=== PATIENT | female | born 1960 | race Caucasian/White ===

== ENCOUNTER → 2016-09-04 | Outpatient (CLI) | payer OTHER ==
[~2016-09-04] MED LIST: ACET325T96 PO; ADVIN25/60 INH; ALBUAER INH; DXM/4 PO; LEVO25TA PO; LEVO50TA PO; ONDA8TAB6 PO; OPTIRAY 320 IV PRN; OXYC-57 PO; PROC1TAB5 PO; SIMV5TAB2 PO
--- NOTE | 2016-09-04 13:16 | DIAGNOSTIC IMAGING REPORT ---
CT ABD/PELVIS IV AND ORAL CONT CLINICAL HISTORY: LUNG CANCER COMPARISON STUDY: None. TECHNIQUE: Following the IV administration of 92 mL of Optiray-320, CT scan of the abdomen and pelvis was performed from the lung bases to the proximal femurs. Images are reviewed in the axial, sagittal, and coronal planes. IV contrast was administered without complication. CT DOSE: FINDINGS: Lower chest: There are right middle lobe atelectatic changes. There is pulmonary emphysema. There is a nodular opacity within the lingula, also likely atelectatic. Liver: There is 8 mm hypodensity within the lateral segment left lobe. Gallbladder: Unremarkable. Spleen: Not visualized and presumed surgically absent Pancreas: Unremarkable. Adrenal glands: There is an indeterminate 17 mm left adrenal gland nodule Kidneys: There is symmetric renal cortical enhancement. The kidneys are normal in size without hydronephrosis. Bowel: There are no transition zones indicate bowel obstruction. No acute inflammatory changes are visualized. Peritoneum: There is no free air. There is no ascites. There are postsurgical changes involving the left anterior abdominal wall with rectus thickening. There is infiltration of the subjacent peritoneal fat. There is a linear opacity within the peritoneum, possibly representing a prior drainage catheter tract. There is mild thickening of the soft tissues adjacent to the splenic flexure, likely postsurgical Vasculature: The abdominal aorta is normal in course and caliber. Adenopathy: None. Pelvic viscera: The bladder, and pelvic viscera are unremarkable. Skeletal structures: No destructive osseous lesions are seen. IMPRESSION: 1. Postsurgical changes of a splenectomy. There are postsurgical changes within the left anterior abdominal wall, left rectus musculature, and subjacent omentum/peritoneal fat 2. Indeterminate 17 mm left adrenal nodule 3. Indeterminate 8 mm hypodensity within the left hepatic lobe Electronically signed by: Bennett Lainez M.D. 09/04/2016 1:14 PM Dictated Date/Time: 09/04/2016 1:04 PM
--- NOTE | 2016-09-04 13:34 | DIAGNOSTIC IMAGING REPORT ---
CT SCAN OF THE CHEST WITH IV CONTRAST CLINICAL HISTORY: Lung cancer. COMPARISON STUDY: Chest CT dated 06/02/2009. PET/CT dated 06/30/2016. TECHNIQUE: Following the IV administration of 92 cc of Optiray 320, CT scan of the thorax was performed from the thoracic inlet to the upper abdomen. Images are reviewed in the axial, sagittal, and coronal planes. IV contrast was administered without complication. CT DOSE: 1573.93 mGy.cm FINDINGS: Thyroid: Imaged portions of the thyroid gland are normal in size and attenuation. Thoracic aorta: There is atherosclerotic calcification of the thoracic aorta, which is normal in caliber and demonstrates standard 3-vessel arch anatomy. No dissection is seen. A right subclavian central venous infusion port is in place. Pulmonary vasculature: The pulmonary trunk is normal in caliber. There are no filling defects identified in the central pulmonary vessels to indicate pulmonary embolus. Note that this examination was not protocoled for evaluation of the pulmonary arteries. Heart: The heart is normal in size and configuration, and without pericardial effusion. Lungs and pleural spaces: Emphysema is identified. There is no airspace consolidation typical for pneumonia or pleural effusion. A left perihilar mass lesion invading into the mediastinum and extending into the left upper lobe along the major fissure measures approximately 7.5 x 4 cm. This is similar in size to 06/30/2016 examination, and encases the left upper lobe pulmonary artery and the left upper lobe bronchus. Mediastinum: Mediastinal lymphadenopathy is similar appearance to 06/30/2016. A high left prevascular node on image #45 measures 2.5 x 2.4 cm (previously measuring 2.3 x 2.1 cm). A subcarinal node on image #110 measures 2.3 x 2.9 cm (previously measuring 2.3 x 3.5 cm). Scarring seen in the right middle lobe. There is bibasilar atelectasis. The trachea is clear. Lower neck: A left supraclavicular lymph node on image #15 measures 2.2 x 1.3 cm (producing measured 2.3 cm). Rosa: There is no right hilar adenopathy. The left hilum contains a large mass as above. Axillae: There is no axillary lymphadenopathy. Upper abdomen: Postoperative change is seen in the left upper quadrant abdominal wall. A 2.0 cm left adrenal nodule and a 1.4 cm right adrenal nodule have been present dating back to 2008. These are low suspicion despite low level FDG activity on 06/30/2016 PET examination. Omental nodularity is again seen in the left upper quadrant. Skeletal structures: The skeletal structures are osteopenic. No lytic or blastic bony lesions are seen. IMPRESSION: 1. Overall no significant change in the appearance of a left perihilar lung mass with mediastinal and left supraclavicular lymphadenopathy as detailed above when compared to the 06/30/2016 PET examination. 2. No new metastatic lesions are seen. 3. Emphysema. There is no airspace consolidation or pleural effusion. 4. Omental nodularity is again seen in the left upper quadrant the abdomen. See report of abdominal CT performed concurrently for detailed intra-abdominal findings. 5. Additional findings as above. Electronically signed by: Foreign Xavier M.D. 09/04/2016 1:33 PM Dictated Date/Time: 09/04/2016 1:14 PM
--- NOTE | 2016-09-04 13:54 | DIAGNOSTIC IMAGING REPORT ---
CT NECK WITH INTRAVENOUS CONTRAST HISTORY: Assess for metastatic disease. LUNG CANCER TECHNIQUE: Multiaxial CT images of the neck were performed following the use of intravenous contrast. COMPARISON STUDY: PET CT 06/30/2016. FINDINGS: The visualized brain parenchyma and orbits are unremarkable. There is a fluid level resulting in near-complete opacification in the left maxillary sinus. Prevertebral soft tissues and the epiglottis are normal in thickness. Mild asymmetry of the left vocal cord in comparison to the right. This could represent partial paralysis. The thyroid gland enhances normally. The major cervical vessels are patent. The patient's left upper lobe mass is only partially visualized on this study. Left-sided superior mediastinal lymphadenopathy is not significantly changed. This measures up to 2.1 cm. There is also left supraclavicular/neck base lymphadenopathy and upper left cervical lymphadenopathy. These lymph nodes have slightly decreased in size. Dominant 1.3 x 0.8 cm upper left cervical lymph node previously measured 1.6 x 1.1 cm. The parotid and submandibular glands are symmetric. There is no right-sided cervical lymphadenopathy. Partial opacification the right external auditory canal with a focal area of hyperdense material which measures 8 mm. This favors a focus of cerumen. This is best seen on image 26. No suspicious lytic or blastic osseous lesions. IMPRESSION: 1. Slight decrease in size in the left cervical/supraclavicular lymphadenopathy. 2. Left superior mediastinal lymphadenopathy is similar to the prior PET/CT. 3. The patient's left upper lobe mass is only partially visualized on this study. Electronically signed by: Alok Bañuelos M.D. 09/04/2016 1:52 PM Dictated Date/Time: 09/04/2016 1:41 PM
== END | disposition home or self-care (01) ==
LOC: C.CTS 10:29
PROVIDERS: ATTEND Nurse Practitioner
DX: C34.12 Malignant neoplasm of upper lobe, left bronchus or lung (principal); J43.9 Emphysema, unspecified; R59.0 Localized enlarged lymph nodes; E27.9 Disorder of adrenal gland, unspecified; R93.2 Abnormal findings on diagnostic imaging of liver and biliary tract; Z90.81 Acquired absence of spleen

== ENCOUNTER → 2016-10-27 | Outpatient (CLI) | payer OTHER ==
[~2016-10-27] MED LIST changes: +GADAVIST IV PRN; -OPTIRAY 320 IV PRN
--- NOTE | 2016-10-27 12:34 | DIAGNOSTIC IMAGING REPORT ---
MRI OF THE BRAIN COMBO CLINICAL HISTORY: Blurry vision. Headache. History of lung cancer. COMPARISON STUDY: MRI of the brain from [facility] dated 09/19/16. TECHNIQUE: MRI of the brain was performed utilizing various T1 and T2-weighted sequences in the axial, sagittal, and coronal planes. Contrast-enhanced sequences were acquired following the administration of 7 cc of Gadavist. FINDINGS: Brain parenchyma: There is mild patchy subcortical and periventricular microangiopathic disease. There is no hemorrhage or mass effect. There is no restricted diffusion to suggest acute ischemia. Previous identified temporal and occipital metastatic lesions are no longer apparent. There are 2 residual dural based metastatic foci in the left frontal region seen on high-resolution axial images #106 and #101 of 128. These are consistent with a resolved from previous. Aguilar-white matter differentiation is preserved. No extra-axial fluid collection is seen. The cerebellar tonsils are normal in configuration. Ventricles, sulci, and cisterns: Normal in configuration. Pituitary and sella: Unremarkable. Intracranial vasculature: Normal flow voids are maintained at the skull base. Orbits: The bony orbits are grossly intact. Orbital contents are normal in appearance. Sinuses and mastoids: There is mucosal thickening and secretions filling the left maxillary antrum. Mild mucosal thickening is seen within the left ethmoid sinuses. The remaining paranasal sinuses and the mastoid air cells are clear. Calvarium: Unremarkable. Cervical cord: Partially visualized cervical spinal cord is normal in morphology and signal intensity. IMPRESSION: 1. No progressive metastatic disease is identified. The previously identified temporal and occipital metastatic lesions seen on 09/19/2016 have resolved. 2. There are 2 residual dural based metastases in the left frontal region. These have almost completely resolved from previous. 3. There is no hemorrhage or evidence of acute ischemia. 4. Left maxillary sinus disease as above. Electronically signed by: Foreign Xavier M.D. 10/27/2016 12:32 PM Dictated Date/Time: 10/27/2016 12:19 PM
== END | disposition home or self-care (01) ==
LOC: C.MRI 10:53
PROVIDERS: ATTEND Radiology Radiation Oncology
DX: C34.12 Malignant neoplasm of upper lobe, left bronchus or lung (principal); C79.31 Secondary malignant neoplasm of brain

== ENCOUNTER → 2016-12-11 | Outpatient (CLI) | payer OTHER ==
[~2016-12-11] MED LIST changes: -ACET325T96 PO; -GADAVIST IV PRN; -OXYC-57 PO; +[UNRECOGNIZED DRUG - REMARK]
[2016-12-11 08:22] VITALS: BP 121/86; PULSE 115; TEMP 36.9; O2SAT 95
--- NOTE | 2016-12-11 09:39 | Radiation Oncology Follow-Up ---
Radiation Oncology Follow-Up Date of Visit Dec 11, 2016. (Rama Katz PA-C) Reason For Visit One-month follow-up (Rama Katz PA-C) Radiation Completion Date Stereotactic to brain 11/12/16 (Rama Katz PA-C) Diagnosis (1) Carcinoma, lung Status: Acute Onset Date: 03/26/2016 Location: brain metastasis Histology Subtype: poorly differentiated carcinoma Stage: IV Permanent Comment: Admitted due to abdominal pain and finding of a ruptured spleen. 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 She received 3000 cGy in 5 fractions. Last Edited By: Rama Katz on Nov 24, 2016 16:04 (Rama Katz PA-C) History of Present Illness Ms. Vaughn is a 55-year-old female who presented in March 2016 with abdominal pain which revealed a splenic rupture and pulmonary masses. The patient underwent a laparotomy and splenectomy on 03/26/2016 which confirmed poorly differentiated carcinoma favoring a lung primary. The patient a PET/CT scan which revealed a 7.3 cm intensely FDG avid left upper lobe mass extending to the left hilum and AP window lymph nodes consistent with a primary bronchogenic malignancy. Additionally, there was metastatic disease identified in the left neck, mediastinum, left hilum, left upper chest and omentum. The patient subsequently received 6 cycles of carboplatin and Taxol chemotherapy with Avastin for the last 2 cycles. She did have a restaging PET CT scan on which revealed findings consistent with a mixed treatment response and slight overall improvement. The patient was subsequently started on Opdivo. She did have restaging scans including a CT of the chest/abdomen/pelvis on 09/04 which did reveal no progression of disease. The patient did have a restaging MRI of the brain on 09/19/2016 which did show 2 enhancing lesions in the left temporal lobe representing metastatic disease. The larger lesion measured 7 mm and was surrounded with vasogenic edema and a smaller focus of enhancement measured 2 mm in the greatest dimension. We are now being asked to evaluate the patient for consideration of radiation therapy to the brain for metastatic disease. Currently, the patient states that she does have some headaches and potentially some blurry vision in her left eye as well. Otherwise, the patient is asymptomatic. She has had no evidence of seizures. The MRI of the brain was reviewed and she was found to be a candidate for stereotactic radiation therapy. Treatment was completed 11/12/2016. She received 3000 cGy in 5 fractions. (Rama Katz PA-C) Interim History She's been doing well over this past month. She feels her vision has improved. She's had no nausea or vomiting. She denies headaches. She does have a different feeling in the left frontal area. She has noted some hair loss in the left frontal area as well as the right occipital area. She had no skin irritation. There is no problems with her hearing or irritation of the ears. She is followed closely by Dr. Melendrez. She is undergoing chemotherapy with Opdivo. She is receiving treatment every 2 weeks. She is tolerating this well. (Rama Katz PA-C) Allergies Coded Allergies: Ibuprofen (Verified Allergy, Severe, Swelling;hives, 10/21/16) patient states she had to be hospitalized the last time she took ibuprofen Home Medications Scheduled Dexamethasone (Decadron), 4 TAB PO BID Levothyroxine Sodium (Synthroid), 1 TAB PO DAILY Scheduled PRN Albuterol Sulfate (Proventil Hfa), 1 PUFF INH QID PRN for Shortness of Breath Ondansetron Hcl (Zofran), 8 MG PO Q8 PRN for Nausea Prochlorperazine Maleate (Compazine), 1 TAB PO Q6 PRN for Nausea or Vomiting Review of Systems Gastrointestinal: Symptoms: WNL GI Comments: Zofran & Compazine PRN Oral: Symptoms: No Problems Respiratory: Symptoms: WNL Respiratory Comments: INFANTE Other Respiratory: Down to smoking 0.5 pack/day from 2 packs per day Urinary: Symptoms: WNL Skin: Symptoms: No Problems Other Skin Symptoms: Reports hair loss (Rama Katz PA-C) Physical Exam Vital Signs Date Time Temp Pulse Resp B/P Pulse Ox O2 Delivery O2 Flow Rate FiO2 12/11/16 08:22 36.9 115 18 121/86 95 Fatigue: None General Appearance: no apparent distress Eyes: normal inspection, PERRL, EOMI ENT: normal ENT inspection, hearing grossly normal, pharynx normal Neck: supple, no adenopathy, thyroid normal Respiratory/Chest: lungs clear, no respiratory distress, no accessory muscle use Cardiovascular: regular rate, rhythm, no gallop, no murmur Abdomen: non tender Extremities: no pedal edema Neurologic/Psychiatric: show host or hostess II-XII nml as tested, no motor/sensory deficits, alert, normal mood/affect Skin: warm/dry (Rama Katz PA-C) Laboratory Studies Test 09/18/16 08:42 10/02/16 11:14 10/16/16 11:10 10/30/16 09:23 Free Thyroxine 1.28 ng/dl (0.80-1.60) Free Triiodothyronine 2.44 pg/ml (2.30-4.20) Polychromasia 1+ 1+ Basophilic Stippling 1+ Hypochromasia PRESENT Anisocytosis PRESENT Macrocytosis PRESENT Target Cells 1+ [place] Bodies 1+ Thyroid Stimulating Hormone (TSH) 0.156 uIu/ml (0.300-4.500) Test 11/13/16 11:00 11/27/16 09:39 12/11/16 08:10 Immature Granulocyte % (Auto) 2.0 % 1.2 % White Blood Count 13.19 K/uL (4.8-10.8) 7.52 K/uL (4.8-10.8) 12.17 K/uL (4.8-10.8) Red Blood Count 4.23 M/uL (4.2-5.4) 4.29 M/uL (4.2-5.4) 4.67 M/uL (4.2-5.4) Hemoglobin 12.0 g/dL (12.0-16.0) 12.0 g/dL (12.0-16.0) 13.2 g/dL (12.0-16.0) Hematocrit 36.1 % (37-47) 36.5 % (37-47) 40.2 % (37-47) Mean Corpuscular Volume 85.3 fL (80-100) 85.1 fL (80-100) 86.1 fL (80-100) Mean Corpuscular Hemoglobin 28.4 pg (25-34) 28.0 pg (25-34) 28.3 pg (25-34) Mean Corpuscular Hemoglobin Concent 33.2 g/dl (32-36) 32.9 g/dl (32-36) 32.8 g/dl (32-36) Platelet Count 287 K/uL (130-400) 287 K/uL (130-400) 617 K/uL (130-400) Mean Platelet Volume 9.0 fL (7.4-10.4) 9.0 fL (7.4-10.4) 8.9 fL (7.4-10.4) Neutrophils (%) (Auto) 88.7 % 68.6 % Lymphocytes (%) (Auto) 4.7 % 17.2 % Monocytes (%) (Auto) 3.9 % 10.1 % Eosinophils (%) (Auto) 0.6 % 2.1 % Basophils (%) (Auto) 0.1 % 0.8 % Neutrophils # (Auto) 11.69 K/uL (1.4-6.5) 8.36 K/uL (1.4-6.5) Lymphocytes # (Auto) 0.62 K/uL (1.2-3.4) 2.09 K/uL (1.2-3.4) Monocytes # (Auto) 0.52 K/uL (0.11-0.59) 1.23 K/uL (0.11-0.59) Eosinophils # (Auto) 0.08 K/uL (0-0.5) 0.25 K/uL (0-0.5) Basophils # (Auto) 0.01 K/uL (0-0.2) 0.10 K/uL (0-0.2) Immature Granulocyte # (Auto) 0.27 K/uL (0.00-0.02) 0.14 K/uL (0.00-0.02) Nucleated RBC Absolute Count (auto) 0.08 K/uL (0-0) 0.02 K/uL (0-0) Nucleated Red Blood Cells % 0.6 % 0.2 % Anisocytosis PRESENT Target Cells 1+ Acanthocytes (Spur Cells) 1+ 1+ Magnesium Level 2.2 mg/dl (1.8-2.4) RDW Standard Deviation 75.7 fL (36.4-46.3) 72.6 fL (36.4-46.3) RDW Coefficient of Variation 24.8 % (11.5-14.5) 23.1 % (11.5-14.5) Neutrophils % (Manual) 80.5 % Lymphocytes % (Manual) 16.8 % Monocytes % (Manual) 2.7 % Neutrophils # (Manual) 6.05 K/uL (1.4-6.5) Total Absolute Neutrophils 6.05 K/uL (1.4-6.5) Lymphocytes # (Manual) 1.26 K/uL (1.2-3.4) Total Absolute Lymphocytes 1.26 K/uL (1.2-3.4) Monocytes # (Manual) 0.20 K/uL (0.11-0.59) Toxic Granulation 1+ Large Platelets 1+ Sodium Level 144 mmol/L (136-145) 140 mmol/L (136-145) Potassium Level 4.6 mmol/L (3.5-5.1) 4.7 mmol/L (3.5-5.1) Chloride Level 109 mmol/L (98-107) 105 mmol/L (98-107) Carbon Dioxide Level 29 mmol/L (21-32) 30 mmol/L (21-32) Anion Gap 6.0 mmol/L (3-11) 5.0 mmol/L (3-11) Blood Urea Nitrogen 18 mg/dl (7-18) 13 mg/dl (7-18) Creatinine 1.00 mg/dl (0.60-1.20) 1.20 mg/dl (0.60-1.20) Estimated GFR () 72.4 58.1 Estimated GFR (Non- 62.5 50.1 BUN/Creatinine Ratio 17.9 (10-20) 10.8 (10-20) Random Glucose 98 mg/dl (70-99) 112 mg/dl (70-99) Calcium Level 9.3 mg/dl (8.5-10.1) 10.1 mg/dl (8.5-10.1) Total Bilirubin 0.3 mg/dl (0.2-1) 0.3 mg/dl (0.2-1) Aspartate Amino Transferase (AST) 12 U/L (15-37) 10 U/L (15-37) Alanine Aminotransferase (ALT) 28 U/L (12-78) 15 U/L (12-78) Alkaline Phosphatase 104 U/L (45-117) 122 U/L (45-117) Lactate Dehydrogenase 240 U/L (84-246) Total Protein 7.3 gm/dl (6.4-8.2) 7.6 gm/dl (6.4-8.2) Albumin 3.2 gm/dl (3.4-5.0) 3.3 gm/dl (3.4-5.0) Globulin 4.1 gm/dl (2.5-4.0) 4.3 gm/dl (2.5-4.0) Albumin/Globulin Ratio 0.8 (0.9-2) 0.8 (0.9-2) Thyroid Stimulating Hormone (TSH) 1.520 uIu/ml (0.300-4.500) Giant Platelets 1+ Hypochromasia PRESENT (Rama Katz PA-C) Assessment & Plan Plan: Patient is also seen and examined by Dr. Giraldo. Continue regular follow- up and treatment with medical oncology. She is getting treatment every 2 weeks. We asked her to return to our office in 3 months. We will schedule her for an MRI prior to that visit. This will be a thin slice evaluation which will give better views on treatment response. She may call our office if she has any questions or concerns in the interim. (Rama Katz PA-C) I agree with note created by Rama Katz PA-C. I reviewed the patient's chart and information with her. I have examined and evaluated the patient. I reviewed relevant clinical information and answered the patient's and/or family' s questions. (Veeral. Giraldo MD) Total Time In Follow-Up I spent 20 minutes speaking to the patient performing examination. I spent 15 minutes reviewing information and completing this note. (Rama Katz PA-C) I spent 15 minutes examining and counseling the patient. (Veeral. Giraldo MD) Copy To Tammy Flores M.D.; Carmine Melendrez D.O. Problem Qualifiers (1) Carcinoma, lung: Laterality: left Qualified Codes: C34.92 - Malignant neoplasm of unspecified part of left bronchus or lung
== END | disposition home or self-care (01) ==
LOC: C.ONC 08:05
PROVIDERS: ATTEND Physician Assistant Medical
DX: Z08 Encounter for follow-up examination after completed treatment for malignant neoplasm (principal); Z92.3 Personal history of irradiation; Z85.118 Personal history of other malignant neoplasm of bronchus and lung

== ENCOUNTER → 2017-01-22 | Outpatient (CLI) | payer OTHER ==
[~2017-01-22] MED LIST changes: -LEVO25TA PO
--- NOTE | 2017-01-22 13:05 | DIAGNOSTIC IMAGING REPORT ---
TWO VIEW CHEST CLINICAL HISTORY: Cough. FINDINGS: PA and lateral chest radiographs are compared to study dated 06/02/2009 and correlated with chest CT dated 09/04/2016. The examination is degraded by large body habitus. A right subclavian central venous infusion port is again noted. The cardiomediastinal silhouette is unremarkable. Emphysema and chronic interstitial thickening are similar to previous. There is a small right pleural effusion with right basilar consolidation. A trace pleural effusion is suggested on the left. The left upper lobe/perihilar density seen by CT on 09/04/2016 is not well-visualized and is best on the lateral projection. The right upper lung appears clear. There is no pneumothorax. The skeletal structures are osteopenic. The bony thorax appears intact. IMPRESSION: 1. There is airspace consolidation at the right lung base with small right pleural effusion. Correlate clinically for evidence of an infectious/inflammatory pneumonitis. Radiographic follow-up to resolution is recommended. 2. A left upper lobe/perihilar lesion seen by CT on 09/04/2016 is not well-visualized and was only partially identified on the lateral projection. Electronically signed by: Foreign Xavier M.D. 01/22/2017 1:04 PM Dictated Date/Time: 01/22/2017 1:02 PM
== END | disposition home or self-care (01) ==
LOC: C.RAD 12:44
PROVIDERS: ATTEND Internal Medicine Hematology & Oncology
DX: C34.12 Malignant neoplasm of upper lobe, left bronchus or lung (principal); R91.8 Other nonspecific abnormal finding of lung field

== ENCOUNTER → 2017-03-09 | Outpatient (CLI) | payer OTHER ==
[~2017-03-09] MED LIST changes: +GADAVIST IV PRN; -[UNRECOGNIZED DRUG - REMARK]
--- NOTE | 2017-03-09 10:42 | DIAGNOSTIC IMAGING REPORT ---
BRAIN COMBO CLINICAL HISTORY: 56 years-old Female presenting with history of lung cancer, metastatic disease, previously with headache and blurry vision. TECHNIQUE: Multisequence, multiplanar MR imaging of the brain was performed before and after administration of intravenous contrast. IV contrast: 7 mL of Gadavist. COMPARISON: 10/27/2016. FINDINGS: Ventricles and sulci normal in size. Previously noted dural based lesions in the left frontal region are minimally evident (series 11 images 101 and 104). No new lesion. Scattered T2 hyperintense foci throughout the subcortical white matter likely chronic small vessel ischemic change. No mass effect or midline shift. No hemorrhage or acute territorial infarct. No extra-axial fluid collection. Vessels patent. Complete opacification of the left maxillary sinus, which demonstrates restricted diffusion unchanged from prior exam. Rim enhancement noted on postcontrast imaging. IMPRESSION: 1. Interval decrease in prominence of previously noted dural based lesions. No evidence of progression or new sites of metastatic disease. 2. No acute intracranial pathology. 3. Left maxillary sinusitis, chronic. Electronically signed by: Osman Liu M.D. 03/09/2017 10:41 AM Dictated Date/Time: 03/09/2017 10:30 AM
== END | disposition home or self-care (01) ==
LOC: C.MRI 09:25
PROVIDERS: ATTEND Physician Assistant Medical
DX: C34.12 Malignant neoplasm of upper lobe, left bronchus or lung (principal); C79.31 Secondary malignant neoplasm of brain

== ENCOUNTER → 2017-03-12 | Outpatient (CLI) | payer OTHER ==
[~2017-03-12] MED LIST changes: -GADAVIST IV PRN
[2017-03-12 13:15] VITALS: BP 117/78; PULSE 100; TEMP 37.4; O2SAT 97
--- NOTE | 2017-03-12 14:17 | Radiation Oncology Follow-Up ---
Radiation Oncology Follow-Up Date of Visit Mar 12, 2017. (Rama Katz PA-C) Reason For Visit One-month follow-up (Rama Katz PA-C) Radiation Completion Date Stereotactic brain radiation 11/12/16 (Rama Katz PA-C) Diagnosis (1) Carcinoma, lung Status: Acute Onset Date: 03/26/2016 Location: brain metastasis Histology Subtype: poorly differentiated carcinoma Stage: IV Permanent Comment: Admitted due to abdominal pain and finding of a ruptured spleen. 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 She received 3000 cGy in 5 fractions. Last Edited By: Rama Katz on Nov 24, 2016 16:04 (Rama Katz PA-C) History of Present Illness Ms. Celeste is a 56-year-old female who presented in March 2016 with abdominal pain which revealed a splenic rupture and pulmonary masses. The patient underwent a laparotomy and splenectomy on 03/26/2016 which confirmed poorly differentiated carcinoma favoring a lung primary. The patient a PET/CT scan which revealed a 7.3 cm intensely FDG avid left upper lobe mass extending to the left hilum and AP window lymph nodes consistent with a primary bronchogenic malignancy. Additionally, there was metastatic disease identified in the left neck, mediastinum, left hilum, left upper chest and omentum. The patient subsequently received 6 cycles of carboplatin and Taxol chemotherapy with Avastin for the last 2 cycles. She did have a restaging PET CT scan on which revealed findings consistent with a mixed treatment response and slight overall improvement. The patient was subsequently started on Opdivo. She did have restaging scans including a CT of the chest/abdomen/pelvis on 09/04 which did reveal no progression of disease. The patient did have a restaging MRI of the brain on 09/19/2016 which did show 2 enhancing lesions in the left temporal lobe representing metastatic disease. The larger lesion measured 7 mm and was surrounded with vasogenic edema and a smaller focus of enhancement measured 2 mm in the greatest dimension. We are now being asked to evaluate the patient for consideration of radiation therapy to the brain for metastatic disease. Currently, the patient states that she does have some headaches and potentially some blurry vision in her left eye as well. Otherwise, the patient is asymptomatic. She has had no evidence of seizures. The MRI of the brain was reviewed and she was found to be a candidate for stereotactic radiation therapy. Treatment was completed 11/12/2016. She received 3000 cGy in 5 fractions. (Rama Katz PA-C) Interim History Patient seen today in follow-up. She had a recheck MRI and is for results. She 's been followed closely by Dr. Melendrez. She is currently on a 1 month holiday from chemotherapy. She had been debilitated with poor appetite and weight loss. She is now steadily improving and doing better. She is seeing Dr. Melendrez 03/26/2017. He states that she'll be having recheck scanning and from this information decision will be made about further treatment. She does become short of breath easily. Pulse oximetry today was 97%. She does monitor this at home. This does not go below 94%. She is not on any steroid therapy. She denies any headaches. No change in vision. No problems with nausea or vomiting. (Rama Katz PA-C) Allergies Coded Allergies: Ibuprofen (Verified Allergy, Severe, Swelling;hives, 10/21/16) patient states she had to be hospitalized the last time she took ibuprofen Home Medications Scheduled Fluticasone Prop/Salmeterol (Advair Diskus 250/50 60 Dose), 1 PUFFS INH BID Levothyroxine Sodium (Synthroid), 1 TAB PO DAILY Simvastatin (Zocor), 5 MG PO QPM Scheduled PRN Albuterol Sulfate (Proventil Hfa), 1 PUFF INH QID PRN for Shortness of Breath Ondansetron Hcl (Zofran), 8 MG PO Q8 PRN for Nausea Prochlorperazine Maleate (Compazine), 1 TAB PO Q6 PRN for Nausea or Vomiting Review of Systems Gastrointestinal: Symptoms: Constipation GI Comments: Manageable at home;Has antiemetics at home; Oral: Symptoms: No Problems Respiratory: Symptoms: SOB With Exertion, Productive Cough Sputum Character: Clear sputum when cough is productive; Urinary: Symptoms: WNL Skin: Symptoms: No Problems (Rama Katz PA-C) Physical Exam Vital Signs Date Time Temp Pulse Resp B/P (MAP) Pulse Ox O2 Delivery O2 Flow Rate FiO2 03/12/17 13:15 37.4 100 20 117/78 97 Fatigue: None General Appearance: no apparent distress, + pertinent finding (1 small area in the left frontal area of alopecia that is resolving.) Eyes: normal inspection, PERRL, EOMI ENT: normal ENT inspection, hearing grossly normal Neck: no adenopathy, thyroid normal Respiratory/Chest: lungs clear, no respiratory distress, no accessory muscle use Cardiovascular: regular rate, rhythm, no gallop, no murmur Abdomen: non tender, soft, no organomegaly Extremities: no pedal edema Neurologic/Psychiatric: damper maker II-XII nml as tested, no motor/sensory deficits, alert, normal mood/affect Skin: warm/dry (Rama Katz PA-C) Laboratory Studies Test 12/11/16 08:10 12/25/16 09:42 01/08/17 09:29 01/22/17 10:01 Giant Platelets 1+ Hypochromasia PRESENT Large Platelets 1+ Anisocytosis PRESENT PRESENT Target Cells 1+ 1+ Acanthocytes (Spur Cells) 1+ [place] Bodies 1+ Thyroid Stimulating Hormone (TSH) 0.435 uIu/ml (0.300-4.500) Test 02/05/17 09:13 02/19/17 11:01 White Blood Count 11.91 K/uL (4.8-10.8) 11.70 K/uL (4.8-10.8) Red Blood Count 4.51 M/uL (4.2-5.4) 4.43 M/uL (4.2-5.4) Hemoglobin 12.2 g/dL (12.0-16.0) 11.9 g/dL (12.0-16.0) Hematocrit 36.4 % (37-47) 35.0 % (37-47) Mean Corpuscular Volume 80.7 fL (80-100) 79.0 fL (80-100) Mean Corpuscular Hemoglobin 27.1 pg (25-34) 26.9 pg (25-34) Mean Corpuscular Hemoglobin Concent 33.5 g/dl (32-36) 34.0 g/dl (32-36) Platelet Count 754 K/uL (130-400) 783 K/uL (130-400) Mean Platelet Volume 8.1 fL (7.4-10.4) 8.1 fL (7.4-10.4) Neutrophils (%) (Auto) 74.1 % 68.1 % Lymphocytes (%) (Auto) 13.4 % 16.5 % Monocytes (%) (Auto) 7.6 % 8.1 % Eosinophils (%) (Auto) 3.8 % 6.2 % Basophils (%) (Auto) 0.7 % 0.5 % Neutrophils # (Auto) 8.83 K/uL (1.4-6.5) 7.97 K/uL (1.4-6.5) Lymphocytes # (Auto) 1.60 K/uL (1.2-3.4) 1.93 K/uL (1.2-3.4) Monocytes # (Auto) 0.90 K/uL (0.11-0.59) 0.95 K/uL (0.11-0.59) Eosinophils # (Auto) 0.45 K/uL (0-0.5) 0.72 K/uL (0-0.5) Basophils # (Auto) 0.08 K/uL (0-0.2) 0.06 K/uL (0-0.2) RDW Standard Deviation 55.5 fL (36.4-46.3) 53.3 fL (36.4-46.3) RDW Coefficient of Variation 18.8 % (11.5-14.5) 18.5 % (11.5-14.5) Immature Granulocyte % (Auto) 0.4 % 0.6 % Immature Granulocyte # (Auto) 0.05 K/uL (0.00-0.02) 0.07 K/uL (0.00-0.02) Sodium Level 139 mmol/L (136-145) 139 mmol/L (136-145) Potassium Level 4.5 mmol/L (3.5-5.1) 4.6 mmol/L (3.5-5.1) Chloride Level 104 mmol/L (98-107) 104 mmol/L (98-107) Carbon Dioxide Level 29 mmol/L (21-32) 27 mmol/L (21-32) Anion Gap 6.0 mmol/L (3-11) 8.0 mmol/L (3-11) Blood Urea Nitrogen 13 mg/dl (7-18) 11 mg/dl (7-18) Creatinine 1.40 mg/dl (0.60-1.20) 1.30 mg/dl (0.60-1.20) Estimated GFR () 48.2 52.7 Estimated GFR (Non- 41.6 45.5 BUN/Creatinine Ratio 9.5 (10-20) 8.3 (10-20) Random Glucose 114 mg/dl (70-99) 105 mg/dl (70-99) Calcium Level 9.3 mg/dl (8.5-10.1) 10.0 mg/dl (8.5-10.1) Total Bilirubin 0.3 mg/dl (0.2-1) 0.3 mg/dl (0.2-1) Aspartate Amino Transferase (AST) 6 U/L (15-37) 6 U/L (15-37) Alanine Aminotransferase (ALT) 13 U/L (12-78) 13 U/L (12-78) Alkaline Phosphatase 110 U/L (45-117) 103 U/L (45-117) Total Protein 7.5 gm/dl (6.4-8.2) 7.7 gm/dl (6.4-8.2) Albumin 3.1 gm/dl (3.4-5.0) 2.9 gm/dl (3.4-5.0) Globulin 4.4 gm/dl (2.5-4.0) 4.8 gm/dl (2.5-4.0) Albumin/Globulin Ratio 0.7 (0.9-2) 0.6 (0.9-2) Thyroid Stimulating Hormone (TSH) 0.144 uIu/ml (0.300-4.500) (Rama Katz PA-C) Additional Studies Patient: DILLON CELESTE Address1: [address] [facility] Rec: [id number] Address2: Acct ID: [id number] [facility] Zip: [place] [address] Date: 1960 Sex: F Room/Bed: Ref Phy: Tammy Flores M.D. SC: C.MRI Att Phy: Rama Katz PA-C Report #: [id number] Romy Phy: Tammy Flores M.D. Test: [facility] Admit Phy: Personal Service Representative: ROMI Interpreting Phy: Osman Liu MD Diagnosis: LUNG CA W/BRAIN METS Ordering Phy: Rama Katz PA-C Service Date: 03/09/17 Admit Date: 03/09/17 MNE: [id number] CONF: DICTATED BY: Osman Liu MD]] CC: Tammy Flores M.D., Angelica, PA-C Endcc: [~ rep ct add3]] BRAIN COMBO CLINICAL HISTORY: 56 years-old Female presenting with history of lung cancer, metastatic disease, previously with headache and blurry vision. TECHNIQUE: Multisequence, multiplanar MR imaging of the brain was performed before and after administration of intravenous contrast. IV contrast: 7 mL of Gadavist. COMPARISON: 10/27/2016. FINDINGS: Ventricles and sulci normal in size. Previously noted dural based lesions in the left frontal region are minimally evident (series 11 images 101 and 104). No new lesion. Scattered T2 hyperintense foci throughout the subcortical white matter likely chronic small vessel ischemic change. No mass effect or midline shift. No hemorrhage or acute territorial infarct. No extra-axial fluid collection. Vessels patent. Complete opacification of the left maxillary sinus, which demonstrates restricted diffusion unchanged from prior exam. Rim enhancement noted on postcontrast imaging. IMPRESSION: 1. Interval decrease in prominence of previously noted dural based lesions. No evidence of progression or new sites of metastatic disease. 2. No acute intracranial pathology. 3. Left maxillary sinusitis, chronic. Electronically signed by: Osman Liu M.D. 03/09/2017 10:41 AM Dictated Date/Time: 03/09/2017 10:30 AM (Rama Katz PA-C) Assessment & Plan Plan: The patient is also seen today by Dr. Giraldo. The MRI results have been reviewed. This showed decrease in the prominence of the dural based lesions. She is going to be seeing Dr. Melendrez 03/26/2017. There are plans for recheck scanning and further discussion of chemotherapy. Today we discussed smoke cessation. She is down to one half pack per day. She is going to continue to wean off of cigarettes. We asked her to return to our office in 3 months. An MRI of the brain will be scheduled prior to that visit. She may call our office if she has any questions or concerns in the interim. (Rama Katz PA-C) I agree with note created by Rama Katz PA-C. I reviewed the patient's chart and information with her. I have examined and evaluated the patient. I reviewed relevant clinical information and answered the patient's and/or family' s questions. (Veeral. Giraldo MD) Total Time In Follow-Up I spent 20 minutes speaking to the patient performing examination. I spent 15 minutes reviewing information in completing this note. AK (Rama Katz PA-C) I spent 15 minutes examining and counseling the patient. LOW EMISSION [employer] (Veeral. Giraldo MD) Copy To Tammy Flores M.D.; Carmine Melendrez D.O. Problem Qualifiers (1) Carcinoma, lung: Laterality: left Qualified Codes: C34.92 - Malignant neoplasm of unspecified part of left bronchus or lung
== END | disposition home or self-care (01) ==
LOC: C.ONC 13:07
PROVIDERS: ATTEND Physician Assistant Medical
DX: Z08 Encounter for follow-up examination after completed treatment for malignant neoplasm (principal); Z92.3 Personal history of irradiation; Z85.118 Personal history of other malignant neoplasm of bronchus and lung

== ENCOUNTER → 2017-03-24 | Outpatient (CLI) | payer OTHER ==
[~2017-03-24] MED LIST changes: -DXM/4 PO
--- NOTE | 2017-03-24 13:44 | DIAGNOSTIC IMAGING REPORT ---
CT ABD/PELVIS IV AND ORAL CONT CLINICAL HISTORY: LUNG CA COMPARISON STUDY: 09/04/2016 TECHNIQUE: Following the IV administration of 92 mL of Optiray-320, CT scan of the abdomen and pelvis was performed from the lung bases to the proximal femurs. Images are reviewed in the axial, sagittal, and coronal planes. IV contrast was administered without complication. A dose lowering technique was utilized adhering to the principles of ALARA. CT DOSE: 819.41 mGy.cm FINDINGS: Lower chest: There is emphysema. There is bibasilar atelectasis. Liver: There is a stable 8 mm hypodensity within the lateral segment the left hepatic lobe anteriorly Gallbladder: Unremarkable. Spleen: Not visualized. Pancreas: Unremarkable. Adrenal glands: There is a stable indeterminate 18 mm left adrenal nodule Kidneys: There is 8 mm upper pole right renal cyst Bowel: There are no transition zones indicate bowel obstruction. There is no acute diverticulitis. There are no findings to indicate acute appendicitis. Peritoneum: There is no intraperitoneal free air or abdominal ascites. Vasculature: The abdominal aorta is normal in course and caliber. Adenopathy: None. Pelvic viscera: The bladder, and pelvic viscera are unremarkable. Skeletal structures: No destructive osseous lesions are seen. IMPRESSION: 1. Postsurgical changes of a prior splenectomy. Interval resolution of the postsurgical changes involving the left anterior abdominal wall. 2. Stable 8 mm hypodensity within the left hepatic lobe 3. Stable 18 mm left adrenal nodule Electronically signed by: Bennett Lainez M.D. 03/24/2017 1:43 PM Dictated Date/Time: 03/24/2017 1:37 PM
--- NOTE | 2017-03-24 13:54 | DIAGNOSTIC IMAGING REPORT ---
CT OF THE CHEST WITH IV CONTRAST CLINICAL HISTORY: Lung cancer. COMPARISON STUDY: Chest CT September 04, 2016. TECHNIQUE: Following IV administration of 92 mL of Optiray-320, helical axial images of the chest were obtained. Sagittal and coronal reconstructions were viewed as well as maximal intensity projections on an independent 3-D workstation. A dose lowering technique was utilized adhering to the principles of ALARA. FINDINGS: Moderate emphysema is noted. The size of the heart is normal. There is no pericardial effusion. The previously described left upper lobe mass with mediastinal extension has markedly decreased in size since exam of September 04, 2016. The mediastinal component within the AP window measures 2.8 x 1.5 cm. It previously measured 4.5 x 3.9 cm. The adjacent irregular left upper lobe lesion measures 3.6 x 1.2 cm. This has significantly decreased in size. Subcarinal lymphadenopathy is also improved. A subcarinal lymph node now measures 2.3 x 0.8 cm. It previously measured 2.9 x 2.3 cm. The previously described left supraclavicular and left paratracheal lymphadenopathy has resolved. No pneumothorax or pleural effusion is present. Numerous tiny subpleural nodules are unchanged in its earlier studies and are benign. No suspicious osseous lesions are present. The abdomen and pelvis will be reported separately. A left adrenal nodule is unchanged and likely reflects an adenoma. IMPRESSION: 1. Findings consistent with a significant treatment response since chest CT of September 04, 2016. Significant interval decrease in size in the left upper lobe mass with mediastinal extension. Small residual masses, as described above. Significant decrease in size of a pathologic subcarinal lymph node with resolution of left paratracheal and left supraclavicular lymphadenopathy. No new sites of metastatic disease identified within the chest. 2. Moderate emphysema. Electronically signed by: Richard Wharton M.D. 03/24/2017 1:52 PM Dictated Date/Time: 03/24/2017 1:38 PM
== END | disposition home or self-care (01) ==
LOC: C.CTS 11:17
PROVIDERS: ATTEND Internal Medicine Hematology & Oncology
DX: C34.12 Malignant neoplasm of upper lobe, left bronchus or lung (principal); J43.9 Emphysema, unspecified; E27.9 Disorder of adrenal gland, unspecified; R93.2 Abnormal findings on diagnostic imaging of liver and biliary tract; Z90.81 Acquired absence of spleen

== ENCOUNTER → 2017-06-15 | Outpatient (CLI) | payer OTHER ==
[~2017-06-15] MED LIST changes: +GADAVIST IV PRN; +[UNRECOGNIZED DRUG - REMARK]
--- NOTE | 2017-06-15 12:37 | DIAGNOSTIC IMAGING REPORT ---
MRI OF THE BRAIN WITHOUT AND WITH IV CONTRAST CLINICAL HISTORY: *SRS PROTOCOL* BRAIN TUMOR LUNG CARCINOMA COMPARISON STUDY: 03/09/2017 TECHNIQUE: MRI of the brain was performed from the vertex to the skull base utilizing various T1 and T2 weighted sequences. Following the IV administration of 7.9 mL of Gadavist contrast, additional enhanced images were obtained. FINDINGS: Sagittal T1, axial diffusion, proton density and T2 weighted axial, coronal FLAIR, and pre and post axial T1-weighted images were acquired. These were supplemented with post gadolinium coronal T1 weighted images. There is stable minimal focal dural enhancement involving the left frontal region. Axial diffusion-weighted images reveal no evidence of acute or subacute infarction. There is no evidence of ventricular dilatation. Proton density T2-weighted and FLAIR images reveal scattered foci of increased T2 signal within the white matter, likely on a small vessel basis. There are no abnormal flow voids. There is complete opacification left maxilla sinus. This remains unchanged. IMPRESSION: 1. Stable minimal focal dural thickening/enhancement within the left frontal region. 2. No evidence for progressive metastatic disease 3. No acute intracranial findings 4. Stable complete opacification of the left maxillary sinus Electronically signed by: Bennett Lainez M.D. 06/15/2017 12:35 PM Dictated Date/Time: 06/15/2017 12:30 PM
== END | disposition home or self-care (01) ==
LOC: C.MRI 11:14
PROVIDERS: ATTEND Radiology Radiation Oncology
DX: C79.31 Secondary malignant neoplasm of brain (principal)

== ENCOUNTER → 2017-06-24 | Outpatient (CLI) | payer OTHER ==
[~2017-06-24] MED LIST changes: -GADAVIST IV PRN
[2017-06-24 13:00] VITALS: BP 127/69; PULSE 91; TEMP 37.2; O2SAT 96
--- NOTE | 2017-06-24 13:57 | Radiation Oncology Follow-Up ---
Radiation Oncology Follow-Up Date of Visit Jun 24, 2017. Reason For Visit 6 month follow-up Radiation Completion Date 11/12/16 Diagnosis (1) Carcinoma, lung Status: Acute Onset Date: 03/26/2016 Location: brain metastasis Histology Subtype: poorly differentiated carcinoma Stage: IV Permanent Comment: Admitted due to abdominal pain and finding of a ruptured spleen. 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 She received 3000 cGy in 5 fractions. Last Edited By: Rama Katz on Nov 24, 2016 16:04 History of Present Illness Ms. Johana glynn presented in March 2016 with abdominal pain which revealed a splenic rupture and pulmonary masses. The patient underwent a laparotomy and splenectomy on 03/26/2016 which confirmed poorly differentiated carcinoma favoring a lung primary. The patient a PET/CT scan 04/30/2016 which revealed a 7.3 cm intensely FDG avid left upper lobe mass extending to the left hilum and AP window lymph nodes consistent with a primary bronchogenic malignancy. Additionally, there was metastatic disease identified in the left neck, mediastinum, left hilum, left upper chest and omentum. The patient subsequently received 6 cycles of carboplatin and Taxol chemotherapy with Avastin for the last 2 cycles. She did have a restaging PET CT scan on 2015 which revealed findings consistent with a mixed treatment response and slight overall improvement. The patient was subsequently started on Opdivo. She did have restaging scans including a CT of the chest/abdomen/pelvis on 09/04 which did reveal no progression of disease. The patient did have a restaging MRI of the brain on 09/19/2016 which did show 2 enhancing lesions in the left temporal lobe representing metastatic disease. The larger lesion measured 7 mm and was surrounded with vasogenic edema and a smaller focus of enhancement measured 2 mm in the greatest dimension. We are now being asked to evaluate the patient for consideration of radiation therapy to the brain for metastatic disease. Currently, the patient states that she does have some headaches and potentially some blurry vision in her left eye as well. Otherwise, the patient is asymptomatic. She has had no evidence of seizures. The MRI of the brain was reviewed and she was found to be a candidate for stereotactic radiation therapy. Treatment was completed 11/12/2016. She received 3000 cGy in 5 fractions. Interim History She's been doing well since her last visit. She had been seen 03/12/2017. She continues on her current regimen of chemotherapy. She denies any problems with headaches or dizziness. Appetite is good and weight is stable. She did develop a rash on her upper back. She was prescribed medication by medical oncology and she is doing well. She continued to smoke. She is cutting back on cigarettes. She is down to one half pack per day. Her respiratory status is stable. She had a recheck MRI of the brain 06/15/2017. She is here today to review the results. Allergies Coded Allergies: Ibuprofen (Verified Allergy, Severe, Swelling;jenny, 10/21/16) patient states she had to be hospitalized the last time she took ibuprofen Home Medications Scheduled Fluticasone Prop/Salmeterol (Advair Diskus 250/50 60 Dose), 1 PUFFS INH BID Levothyroxine Sodium (Synthroid), 1 TAB PO DAILY Simvastatin (Zocor), 5 MG PO QPM Scheduled PRN Albuterol Sulfate (Proventil Hfa), 1 PUFF INH QID PRN for Shortness of Breath Ondansetron Hcl (Zofran), 8 MG PO Q8 PRN for Nausea Prochlorperazine Maleate (Compazine), 1 TAB PO Q6 PRN for Nausea or Vomiting Miscellaneous Medications [Med for Rash on Back] Review of Systems Gastrointestinal: Symptoms: WNL Oral: Symptoms: No Problems Respiratory: Symptoms: WNL, Dry Cough, SOB With Exertion Other Respiratory: Smoking 1/2 ppd Urinary: Symptoms: WNL Skin: Symptoms: No Problems Physical Exam Vital Signs Date Time Temp Pulse Resp B/P (MAP) Pulse Ox O2 Delivery O2 Flow Rate FiO2 06/24/17 13:00 37.2 91 16 127/69 96 Fatigue: None General Appearance: no apparent distress Eyes: normal inspection, EOMI ENT: normal ENT inspection, hearing grossly normal Neck: no adenopathy, thyroid normal Respiratory/Chest: no respiratory distress, no accessory muscle use, + decreased breath sounds Cardiovascular: regular rate, rhythm, no gallop, no murmur Extremities: no pedal edema Neurologic/Psychiatric: no motor/sensory deficits, alert, normal mood/affect Skin: warm/dry Laboratory Studies Test 04/16/17 09:45 05/14/17 09:50 05/28/17 08:26 06/11/17 10:05 Hypersegmented Polys 1+ 1+ Microcytosis PRESENT PRESENT Hypochromasia PRESENT White Blood Count 8.47 K/uL (4.8-10.8) 8.09 K/uL (4.8-10.8) Red Blood Count 4.84 M/uL (4.2-5.4) 4.80 M/uL (4.2-5.4) Hemoglobin 12.6 g/dL (12.0-16.0) 12.9 g/dL (12.0-16.0) Hematocrit 39.0 % (37-47) 39.3 % (37-47) Mean Corpuscular Volume 80.6 fL (80-100) 81.9 fL (80-100) Mean Corpuscular Hemoglobin 26.0 pg (25-34) 26.9 pg (25-34) Mean Corpuscular Hemoglobin Concent 32.3 g/dl (32-36) 32.8 g/dl (32-36) Platelet Count 542 K/uL (130-400) 464 K/uL (130-400) Mean Platelet Volume 8.7 fL (7.4-10.4) 8.6 fL (7.4-10.4) Neutrophils (%) (Auto) 63.7 % 65.9 % Lymphocytes (%) (Auto) 22.2 % 20.1 % Monocytes (%) (Auto) 8.1 % 7.2 % Eosinophils (%) (Auto) 4.4 % 5.3 % Basophils (%) (Auto) 1.2 % 1.0 % Neutrophils # (Auto) 5.40 K/uL (1.4-6.5) 5.33 K/uL (1.4-6.5) Lymphocytes # (Auto) 1.88 K/uL (1.2-3.4) 1.63 K/uL (1.2-3.4) Monocytes # (Auto) 0.69 K/uL (0.11-0.59) 0.58 K/uL (0.11-0.59) Eosinophils # (Auto) 0.37 K/uL (0-0.5) 0.43 K/uL (0-0.5) Basophils # (Auto) 0.10 K/uL (0-0.2) 0.08 K/uL (0-0.2) RDW Standard Deviation 67.4 fL (36.4-46.3) 65.0 fL (36.4-46.3) RDW Coefficient of Variation 22.9 % (11.5-14.5) 21.5 % (11.5-14.5) Immature Granulocyte % (Auto) 0.4 % 0.5 % Immature Granulocyte # (Auto) 0.03 K/uL (0.00-0.02) 0.04 K/uL (0.00-0.02) Anisocytosis PRESENT PRESENT Target Cells 1+ 1+ Starr-Veyo Bodies 1+ 1+ Acanthocytes (Spur Cells) 1+ 1+ Sodium Level 140 mmol/L (136-145) 142 mmol/L (136-145) Potassium Level 4.2 mmol/L (3.5-5.1) 4.4 mmol/L (3.5-5.1) Chloride Level 108 mmol/L (98-107) 107 mmol/L (98-107) Carbon Dioxide Level 27 mmol/L (21-32) 28 mmol/L (21-32) Anion Gap 5.0 mmol/L (3-11) 6.0 mmol/L (3-11) Blood Urea Nitrogen 16 mg/dl (7-18) 11 mg/dl (7-18) Creatinine 1.10 mg/dl (0.60-1.20) 1.31 mg/dl (0.60-1.20) Estimated GFR () 64.5 52.3 Estimated GFR (Non- 55.7 45.1 BUN/Creatinine Ratio 14.5 (10-20) 8.2 (10-20) Random Glucose 99 mg/dl (70-99) 107 mg/dl (70-99) Calcium Level 9.3 mg/dl (8.5-10.1) 9.3 mg/dl (8.5-10.1) Total Bilirubin 0.5 mg/dl (0.2-1) 0.3 mg/dl (0.2-1) Aspartate Amino Transferase (AST) 8 U/L (15-37) 11 U/L (15-37) Alanine Aminotransferase (ALT) 13 U/L (12-78) 13 U/L (12-78) Alkaline Phosphatase 127 U/L (45-117) 126 U/L (45-117) Total Protein 7.2 gm/dl (6.4-8.2) 7.4 gm/dl (6.4-8.2) Albumin 3.5 gm/dl (3.4-5.0) 3.6 gm/dl (3.4-5.0) Globulin 3.7 gm/dl (2.5-4.0) 3.7 gm/dl (2.5-4.0) Albumin/Globulin Ratio 1.0 (0.9-2) 1.0 (0.9-2) Thyroid Stimulating Hormone (TSH) 2.970 uIu/ml (0.300-4.500) 3.020 uIu/ml (0.300-4.500) Additional Studies Patient: DILLON CELESTE Address1: [address] [place] [address] Rec: [id number] [id number] Zip: [place] [address] Date: 1960 Sex: F Room/Bed: Ref Phy: Tammy Flores M.D. SC: C.MRI Att Phy: Ranjan Giraldo.MD Report #: [id number] Romy Phy: Tammy Flores M.D. Test: [facility] Admit Phy: Deboner: CUSTCH Interpreting Phy: Bennett Lainez M.D. Diagnosis: *SRS PROTOCOL* BRAIN TUMOR Ordering Phy: Ranjan Giraldo MD Service Date: 06/15/17 Admit Date: 06/15/17 MNE: [id number] CONF: DICTATED BY: Bennett Lainez M.D.]] CC: Tmamy Flores M.D., Veeral., MD Endcc: [~ rep ct add3]] MRI OF THE BRAIN WITHOUT AND WITH IV CONTRAST CLINICAL HISTORY: *SRS PROTOCOL* BRAIN TUMOR LUNG CARCINOMA COMPARISON STUDY: 03/09/2017 TECHNIQUE: MRI of the brain was performed from the vertex to the skull base utilizing various T1 and T2 weighted sequences. Following the IV administration of 7.9 mL of Gadavist contrast, additional enhanced images were obtained. FINDINGS: Sagittal T1, axial diffusion, proton density and T2 weighted axial, coronal FLAIR, and pre and post axial T1-weighted images were acquired. These were supplemented with post gadolinium coronal T1 weighted images. There is stable minimal focal dural enhancement involving the left frontal region. Axial diffusion-weighted images reveal no evidence of acute or subacute infarction. There is no evidence of ventricular dilatation. Proton density T2-weighted and FLAIR images reveal scattered foci of increased T2 signal within the white matter, likely on a small vessel basis. There are no abnormal flow voids. There is complete opacification left maxilla sinus. This remains unchanged. IMPRESSION: 1. Stable minimal focal dural thickening/enhancement within the left frontal region. 2. No evidence for progressive metastatic disease 3. No acute intracranial findings 4. Stable complete opacification of the left maxillary sinus Electronically signed by: Bennett Lainez M.D. 06/15/2017 12:35 PM Dictated Date/Time: 06/15/2017 12:30 PM Assessment & Plan Plan: Patient was also seen today by Dr. Giraldo. The MRI results were reviewed. It is felt that these findings are stable. I reviewed with her weaning off the cigarettes once again. I did give her information today on the 1 800 quit line. She did not want to be referred to a smoke cessation class. She was in [place] and will be too difficult for her to travel to [place] to participate in classes. Continue follow-up with medical oncology. We asked her to return to our office in 3 months. We will schedule an MRI prior to that visit. She may call if she has any questions or concerns in the interim. Assessment & Plan (Attending) ADDENDUM: I agree with note created by Rama Katz PA-C. I reviewed the patient's chart and information with her. I have examined and evaluated the patient. I reviewed relevant clinical information and answered the patient's and /or family's questions. LASTER HAND Total Time In Follow-Up I spent 20 minutes speaking to the patient and performing examination. I spent 15 minutes reviewing information and completing this note. Total Time (Attending) In Follow-Up I spent 15 minutes examining and counseling the patient. LASTER HAND Copy To Tammy Flores M.D.; Carmine Melendrez D.O. Problem Qualifiers (1) Carcinoma, lung: Laterality: left Qualified Codes: C34.92 - Malignant neoplasm of unspecified part of left bronchus or lung
== END | disposition home or self-care (01) ==
LOC: C.ONC 12:54
PROVIDERS: ATTEND Physician Assistant Medical
DX: Z08 Encounter for follow-up examination after completed treatment for malignant neoplasm (principal); Z92.3 Personal history of irradiation; Z85.118 Personal history of other malignant neoplasm of bronchus and lung

== ENCOUNTER → 2017-09-28 | Outpatient (CLI) | payer OTHER ==
[~2017-09-28] MED LIST changes: +ASPI81TA28 PO; +DOXY100C76 PO; +DXM/4 PO; +GADAVIST IV PRN; +METO25TA3 PO; +OXYC1TAB3 PO; +SPRIN/30 INH; +TRMCR515 TOP
--- NOTE | 2017-09-28 10:58 | DIAGNOSTIC IMAGING REPORT ---
Brain MRI WITH AND WITHOUT CONTRAST HISTORY: Lung cancer. Assess for metastatic disease. TECHNIQUE: Multiplanar multisequence MRI of the brain was performed both before and after the intravenous administration of contrast. COMPARISON STUDY: Brain MRI 06/15/2017. FINDINGS: There is no hematoma, midline shift, acute infarct. The ventricles and sulci are within normal limits. Opacified left maxillary sinus. The orbits are unremarkable. The mastoid air cells are clear. The major vascular flow-voids at the skull base are well-maintained. There are few punctate foci of T2 hyperintensity seen within the white matter of the supratentorial brain. These are nonspecific but favor mild microvascular ischemic change. The left frontal dural based lesions have essentially resolved. There is a 6 mm ring-enhancing lesion within the left occipital lobe on image 56 of 132. This is not significantly changed in size. No new metastatic lesions identified. IMPRESSION: 1. The left frontal dural based lesions have essentially resolved. 2. Stable 6 mm metastatic lesion within the left occipital lobe. 3. No new metastatic lesions identified. 4. Stable opacified left maxillary sinus. Electronically signed by: Alok Bañuelos M.D. 09/28/2017 10:57 AM Dictated Date/Time: 09/28/2017 10:49 AM
== END | disposition home or self-care (01) ==
LOC: C.MRI 09:28
PROVIDERS: ATTEND Physician Assistant Medical
DX: C79.31 Secondary malignant neoplasm of brain (principal)

== ENCOUNTER → 2017-09-30 | Outpatient (CLI) | payer OTHER ==
[~2017-09-30] MED LIST changes: -GADAVIST IV PRN
[2017-09-30 14:14] VITALS: BP 118/64; PULSE 116; TEMP 36.8; O2SAT 97
--- NOTE | 2017-09-30 15:10 | Radiation Oncology Follow-Up ---
Radiation Oncology Follow-Up Date of Visit Sep 30, 2017. Radiation Completion Date 11/12/16 Diagnosis (1) Carcinoma, lung Status: Acute Onset Date: 03/26/2016 Permanent Comment: Admitted due to abdominal pain and finding of a ruptured spleen. 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 She received 3000 cGy in 5 fractions. Last Edited By: Rama Katz on Nov 24, 2016 16:04 Interim History Ms. Celeste is a 56-year-old female with metastatic lung cancer to the brain. The patient was treated with SBRT in 5 fractions to the brain and completed treatment on November 12, 2016. The patient is currently undergoing Opdivo underneath the supervision of Dr. Carmine Melendrez. We are now seeing the patient back in follow-up evaluation. In general, the patient is doing relatively well overall. She has no complaints. She denies any headaches or focal neurologic deficits. She is tolerating Opdivo well. Allergies Coded Allergies: Ibuprofen (Verified Allergy, Severe, Swelling;hives, 10/21/16) patient states she had to be hospitalized the last time she took ibuprofen Home Medications Scheduled Aspirin (Aspirin Ec), 81 MG PO DAILY Doxycycline Monohydrate (Monodox), 100 MG PO QD Fluticasone Prop/Salmeterol (Advair Diskus 250/50 60 Dose), 1 PUFFS INH BID Levothyroxine Sodium (Synthroid), 1 TAB PO DAILY Triamcinolone Acet (Triamcinolone Acetonide), 1 APPLN TOP BID Scheduled PRN Albuterol Sulfate (Proventil Hfa), 1 PUFF INH QID PRN for Shortness of Breath Ondansetron Hcl (Zofran), 8 MG PO Q8 PRN for Nausea Oxycodone Ir (Roxicodone Ir), 1-2 TAB PO Q4H PRN for Severe Pain Prochlorperazine Maleate (Compazine), 1 TAB PO Q6 PRN for Nausea or Vomiting Review of Systems Gastrointestinal: Symptoms: WNL Oral: Symptoms: No Problems Respiratory: Symptoms: Dry Cough, SOB With Exertion, Productive Cough Sputum Character: Yellowish brown when cough is productive Other Respiratory: Smoking 1/2 ppd Urinary: Symptoms: WNL Skin: Symptoms: No Problems Physical Exam Vital Signs Date Time Temp Pulse Resp B/P (MAP) Pulse Ox O2 Delivery O2 Flow Rate FiO2 09/30/17 14:14 36.8 116 16 118/64 97 General Appearance: WD/WN, no apparent distress Eyes: normal inspection, EOMI ENT: normal ENT inspection, hearing grossly normal Neck: supple, no adenopathy Respiratory/Chest: chest non-tender, lungs clear, normal breath sounds, no respiratory distress Cardiovascular: regular rate, rhythm, no edema, no gallop Neurologic/Psychiatric: nailing machine feeder II-XII nml as tested, alert, oriented x 3 Pain Management Patient Reports Pain: No Patient Preferred Pain Scale: 0 - 10 Initial Pain Intensity: 0.0 Pain Intervention: See MAR Pain Management Plan Patient has no pain and requires no pain management plan. Laboratory Laboratory Results: not applicable Pathology Pathology Results: not applicable Imaging Imaging Studies: were reviewed, and pertinent findings noted below Imaging Comments Patient: DILLON CELESTE Address1: [address] [place] [address] Rec: [id number] Address2: Acct ID: [id number] [facility] Zip: [place] [address] Date: 1960 Sex: F Room/Bed: Ref Phy: Tammy Flores M.D. SC: C.MRI Att Phy: Rama Katz PA-C Report #: [id number] Romy Phy: Tammy Floers M.D. Test: [facility] Admit Phy: Loop Tacker: FAMILIA Interpreting Phy: Alok Bañuelos MD Diagnosis: *SRS PROTOCOL* SECONDARY MALIG NEOPL OF BRAIN Ordering Phy: Rama Katz PA-C Service Date: 09/28/17 Admit Date: 09/28/17 MNE: [id number] CONF: DICTATED BY: Alok Bañuelos M.D.]] CC: Tammy Flores M.D., Angelica, PA-C Endcc: [~ rep ct add3]] Brain MRI WITH AND WITHOUT CONTRAST HISTORY: Lung cancer. Assess for metastatic disease. TECHNIQUE: Multiplanar multisequence MRI of the brain was performed both before and after the intravenous administration of contrast. COMPARISON STUDY: Brain MRI 06/15/2017. FINDINGS: There is no hematoma, midline shift, acute infarct. The ventricles and sulci are within normal limits. Opacified left maxillary sinus. The orbits are unremarkable. The mastoid air cells are clear. The major vascular flow-voids at the skull base are well-maintained. There are few punctate foci of T2 hyperintensity seen within the white matter of the supratentorial brain. These are nonspecific but favor mild microvascular ischemic change. The left frontal dural based lesions have essentially resolved. There is a 6 mm ring-enhancing lesion within the left occipital lobe on image 56 of 132. This is not significantly changed in size. No new metastatic lesions identified. IMPRESSION: 1. The left frontal dural based lesions have essentially resolved. 2. Stable 6 mm metastatic lesion within the left occipital lobe. 3. No new metastatic lesions identified. 4. Stable opacified left maxillary sinus. Assessment & Plan Assessment: Ms. Celeste has no evidence of clinical progression of disease intracranially. We are happy with her treatment response overall with respect SBRT to the brain. Plan: 1. Repeat MRI of Brain in 3 months with follow up evaluation. 2. Continue treatment (Opdivo) underneath the supervision of Dr. Carmine Melendrez. 3. Patient and family encouraged to call us with any further questions or concerns. Total Time In Follow-Up I spent 20 minutes examining and counseling the patient. I spent 15 minutes completing this note. SECURITY INTERN Copy To Tammy Flores M.D.; Carmine Melendrez D.O.
== END | disposition home or self-care (01) ==
LOC: C.ONC 13:59
PROVIDERS: ATTEND Physician Assistant Medical
DX: Z08 Encounter for follow-up examination after completed treatment for malignant neoplasm (principal); Z92.3 Personal history of irradiation; Z85.118 Personal history of other malignant neoplasm of bronchus and lung

== ENCOUNTER → 2017-10-12 | Outpatient (CLI) | payer OTHER ==
[~2017-10-12] MED LIST changes: -DXM/4 PO; -METO25TA3 PO; +OPTIRAY 320 IV PRN; -SIMV5TAB2 PO; -SPRIN/30 INH; -[UNRECOGNIZED DRUG - REMARK]
--- NOTE | 2017-10-12 15:49 | DIAGNOSTIC IMAGING REPORT ---
CT OF THE CHEST WITH IV CONTRAST CLINICAL HISTORY: LUNG CA COMPARISON STUDY: 03/24/2017 TECHNIQUE: Following the IV administration of 120 mL of Optiray-320, CT of the thorax was performed from the thoracic inlet to the lung bases. Images are reviewed in the axial, sagittal, and coronal planes. IV contrast was administered without complication. A dose lowering technique was utilized adhering to the principles of ALARA. CT DOSE: FINDINGS: Thyroid: Imaged portions of the thyroid gland are normal in appearance. Thoracic aorta: The thoracic aorta is normal in course and caliber, noting standard 3-vessel arch anatomy. No aneurysm or dissection is seen. Pulmonary vasculature: The pulmonary trunk is normal in caliber. There are no central filling defects identified to suggest pulmonary embolus. Note that this examination was not protocoled for the evaluation of pulmonary emboli. HEART: The heart is normal in size and configuration, without pericardial effusion. Lungs and pleural spaces: There are no pleural effusions. There is underlying pulmonary emphysema. There is a left upper lobe pulmonary mass, abutting the major fissure. This demonstrate central cavitation. The lesion measures 32 x 14 x 67 mm. The lesion extends to the left upper lobe pulmonary artery. Mediastinum: There is been further decrease in the size the mediastinal lymph nodes with a residual 13 mm AP window node. Rosa: There is no pathologic hilar adenopathy by size criteria Axilla: There is no pathologic axillary lymphadenopathy Upper abdomen: There is a stable 2 cm left adrenal gland nodule Skeletal structures: There are no lytic or blastic osseous lesions. IMPRESSION: 1. No significant change in the size of the left upper lobe pulmonary mass which currently demonstrates central cavitation 2. Interval decrease in the size of the previously identified mediastinal lymph nodes 3. Emphysema 4. Stable 2 cm left adrenal nodule Electronically signed by: Bennett Lainez M.D. 10/12/2017 3:48 PM Dictated Date/Time: 10/12/2017 3:42 PM
--- NOTE | 2017-10-12 16:05 | DIAGNOSTIC IMAGING REPORT ---
ABD/PELVIS IV AND ORAL CONT CLINICAL HISTORY: 56 years-old Female presenting with LUNG CA. TECHNIQUE: Multidetector CT of the abdomen and pelvis was performed after the administration of oral and intravenous contrast. IV contrast: None. A dose lowering technique was used consistent with the principles of ALARA (as low as reasonably achievable). COMPARISON: 03/24/2017. CT DOSE (mGy.cm): The estimated cumulative dose is 998.04 mGy.cm. FINDINGS: [employer] topogram: Unremarkable. Lung bases: Minimal basilar opacities, likely atelectasis. Emphysematous changes also evident. Normal heart size. No pericardial or pleural effusion. Liver: Normal morphology. Ill-defined hypodensity peripherally in the anterior left hepatic lobe (series 7 image 83), not significant changed from prior. No new lesion. Patent hepatic vasculature. Biliary: No intrahepatic or extrahepatic biliary ductal dilatation. Normal gallbladder. Pancreas: Moderate parenchymal atrophy. Spleen: Absent. Adrenal glands: Nodule in the left adrenal gland now measures 1.8 cm, previously 1.8 cm. This is indeterminate by density but unchanged. Right adrenal gland normal. Kidneys and ureters: Normal. No hydronephrosis. Bladder: Normal. Pelvic organs: Uterus and ovaries normal. Bowel: Normal. No bowel obstruction. Peritoneal cavity: No free fluid or intraperitoneal gas. Lymph nodes: Few scattered subcentimeter lymph nodes in the retroperitoneum, nonspecific. These are slightly more prominent than on the prior exam. The largest lymph node is noted near the aortic bifurcation measuring 6 mm in the short axis. Embolization material may be present in the lymphatics in the retroperitoneum and thoracic duct. Vasculature: Atherosclerosis of the normal caliber abdominal aorta. IVC patent. Abdominal wall: Small fat-containing umbilical hernia. Musculoskeletal: Normal. IMPRESSION: 1. Unchanged left adrenal gland nodule, which is indeterminate by density but most suggestive of a benign adenoma. 2. Stable hypodensity in the liver, which is indeterminate but likely benign. No new liver lesion. 3. Slight interval increase in size of retroperitoneal lymph nodes though these are subcentimeter in the short axis. 4. Postsurgical changes of splenectomy. 5. No convincing evidence of metastatic disease in the abdomen or pelvis. 6. Emphysema. Electronically signed by: Osman Liu M.D. 10/12/2017 4:03 PM Dictated Date/Time: 10/12/2017 3:51 PM
== END | disposition home or self-care (01) ==
LOC: C.CTS 13:23
PROVIDERS: ATTEND Nurse Practitioner Family
DX: C34.12 Malignant neoplasm of upper lobe, left bronchus or lung (principal); J43.9 Emphysema, unspecified

== ENCOUNTER → 2017-12-28 | Outpatient (CLI) | payer OTHER ==
[~2017-12-28] MED LIST changes: +GADAVIST IV PRN; +ONDA-170 PO; -ONDA8TAB6 PO; -OPTIRAY 320 IV PRN; +PROC10TA PO; -PROC1TAB5 PO
--- NOTE | 2017-12-28 12:01 | DIAGNOSTIC IMAGING REPORT ---
MRI OF THE BRAIN WITHOUT AND WITH IV CONTRAST CLINICAL HISTORY: Metastatic lung cancer. SRS protocol. COMPARISON STUDY: MRI of the brain September 28, 2017. TECHNIQUE: Utilizing a 1.5 Shireen magnet and dedicated coil, multiplanar, multiecho imaging of the brain was performed pre and postcontrast administration. IV administration of 8 mL of Gadavist contrast was uneventful. Thin cut T1 post contrast imaging was performed with multiplanar reconstructions as per the stereotactic radiosurgery protocol. FINDINGS: A 6 mm ring-enhancing left occipital lobe lesion shown on axial T1 postcontrast image 60 of 116. This is similar to exam of September 28, 2017. Associated vasogenic edema has slightly increased. No additional intracranial enhancing lesions are present. Ventricular system is normal. Basilar cisterns are patent. There are no extra-axial collections. Flow-voids for the major intracranial vessels are present. Calvarial signal is within normal limits. As before, left maxillary sinus is opacified. Numerous white matter T2 hyperintense foci suggest small vessel disease. IMPRESSION: No significant change in size of the 6 mm ring-enhancing metastasis within the left occipital lobe since MRI of September 28, 2017. Slight increase in associated vasogenic edema. No additional intracranial metastases. Electronically signed by: Richard Wharton M.D. 12/28/2017 12:00 PM Dictated Date/Time: 12/28/2017 11:43 AM
== END | disposition home or self-care (01) ==
LOC: C.MRI 10:17
PROVIDERS: ATTEND Radiology Radiation Oncology
DX: C79.31 Secondary malignant neoplasm of brain (principal); C34.12 Malignant neoplasm of upper lobe, left bronchus or lung

== ENCOUNTER → 2018-04-01 | Outpatient (CLI) | payer OTHER ==
[~2018-04-01] MED LIST changes: +OXYC-90 PO; -OXYC1TAB3 PO
--- NOTE | 2018-04-01 14:28 | DIAGNOSTIC IMAGING REPORT ---
BRAIN COMBO CLINICAL HISTORY: 57 years-old Female presenting with metastatic disease, history of lung cancer. TECHNIQUE: Multisequence, multiplanar MR imaging of the brain was performed before and after the administration of intravenous contrast. IV contrast: 8 mL of Gadavist. COMPARISON: 12/28/2017. FINDINGS: Localizer images: Unremarkable. Ventricles and sulci normal in size. Stable 6 mm ring-enhancing lesion in the left occipital lobe, unchanged from prior exam. No new lesion. This restricts diffusion. Multifocal T2/flair hyperintensities throughout the subcortical and periventricular white matter. No mass effect or midline shift. No hemorrhage. No extra-axial fluid collection. T2 skull base flow voids preserved. Mucosal hyperenhancement of the opacified left maxillary sinus and left ethmoid air cells. Bone marrow signal intensity within the calvarium within normal limits. IMPRESSION: 1. Stable left occipital lobe metastatic lesion. No new lesion. 2. Chronic small vessel ischemic change. No acute intracranial pathology. 3. Findings suggest acute sinusitis of the left maxillary sinus. Electronically signed by: Osman Liu M.D. 04/01/2018 2:26 PM Dictated Date/Time: 04/01/2018 2:18 PM
== END | disposition home or self-care (01) ==
LOC: C.MRI 12:53
PROVIDERS: ATTEND Physician Assistant Medical
DX: C34.12 Malignant neoplasm of upper lobe, left bronchus or lung (principal); C79.31 Secondary malignant neoplasm of brain; I67.82 Cerebral ischemia

== ENCOUNTER 2024-09-02 09:29 | Inpatient (IN) ==
[2024-09-02] MEDS: OPTIRAY 320 125ml IV ONE (09:34)
[2024-09-02 09:58] LABS: Basophils # (auto) 0.09 K/uL (0.00-0.20); Basophils % (auto) 1.1 %; Eosinophils # (auto) 0.44 K/uL (0.00-0.50); Eosinophils % (auto) 5.2 %; Hemoglobin 13.7 g/dl (12.0-16.0); Immature Granulocytes # (auto) 0.02 K/uL (0.01-0.20); Immature Granulocytes % (auto) 0.2 %; Lymphocytes # (auto) 3.11 K/uL (1.20-3.40); Lymphocytes % (auto) 37.1 %; Mean Corpuscular Hemoglobin 29.3 pg (25.0-34.0); Mean Corpuscular Hgb Conc 32.6 g/dL (32.0-36.0); Mean Corpuscular Volume 89.7 fL (80.0-100.0); Mean Platelet Volume 9.2 fL (9.4-12.4); Monocytes # (auto) 0.76 K/uL (0.11-0.59); Monocytes % (auto) 9.1 %; Neutrophils # (auto) 3.97 K/uL (1.40-6.50); Neutrophils % (auto) 47.3 %; Platelet Count 350 K/uL (130-400); RDW Coefficient of Variation 15.2 % (11.5-14.5); RDW Standard Deviation 49.8 fL (36.4-46.3); Red Blood Count 4.68 M/uL (4.20-5.40); White Blood Count 8.39 K/ul (4.8-10.8)
--- NOTE | 2024-09-02 09:59 | CT Scan Report ---
CT angio head w con, CT head/brain wo con CLINICAL HISTORY: neuro deficit, acute stroke suspected TECHNIQUE: Contiguous axial CT images of the head were acquired from the base of the skull to the hector juan without intravenous contrast administration. CT angiography of the head was performed following intravenous administration of iodinated contrast. Coronal and sagittal MIPS were obtained from the ax ial data set and were submitted for review. Automated dose lowering techniques and/or adjustment acc ording to patient size were utilized for this examination. All measurements were calculated based on NASCET criteria. Comparison: None available at the time of this dictation. FINDINGS: CT head: Areas of decreased attenuation are present in the periventricular and subcortical white colton er bilaterally consistent with small vessel ischemic disease. Generalized cerebral atrophy with comme nsurate enlargement of the ventricles, sulci, and cisterns is also present. There is no acute intracr anial hemorrhage or evidence of acute territorial infarction. No shift of the midline structures, mas s effect, or extra-axial abnormalities are shown. Atherosclerotic calcifications are present in the intracranial segments of the internal carotid arteries. Focal encephalomalacia in the left parieto-oc cipital region is unchanged. Opacification of the left maxillary sinus and multiple ethmoid air cells noted. CTA Head: The anterior and posterior cerebral circulations are patent. No hemodynamically significan t stenosis, aneurysm, dissection, or arteriovenous malformation is shown. IMPRESSION: 1. No acute intracranial hemorrhage, evidence of acute territorial infarction, or other acute intrac ranial disease process. 2. No occlusion, hemodynamically significant stenosis, aneurysm, dissection, or arteriovenous malfor mation in the major intracranial arteries. Assessment of stenosis of the internal carotid arteries is based on NASCET criteria. ACT 112: Negative or not required by law. Electronically signed by: Javy Vivas M.D. 09/02/2024 9:57 AM
--- NOTE | 2024-09-02 10:06 | CT Scan Report ---
CT angio neck with con CLINICAL HISTORY: 63 years-old Female with neuro deficit, acute stroke suspected. Acute stroke lik e symptoms with left-sided weakness COMPARISON STUDY: Head CT and CTA head studies of same day TECHNIQUE: Following the IV administration of 120 cc of Optiray, CT angiogram of the neck was perform ed from the aortic arch to the skull base. Images are reviewed in the axial, sagittal, and coronal pl anes. 3-D MIPS images are created and assessed. IV contrast was administered without complication. Al l measurements were calculated based on NASCET criteria. A dose lowering technique was utilized adhe ring to the principles of ALARA. CT DOSE: 968.44 mGy.cm FINDINGS: Atherosclerosis of the thoracic aortic arch. Opacified collateral vessels of the right chest wall and supraclavicular tissues with narrowing of the right subclavian vein. The innominate and subclavian a rteries are patent. Patent common carotid arteries. Atherosclerosis of the carotid bulbs without significant stenosis. In ternal carotid arteries are widely patent. The vertebral arteries are patent bilaterally. There is mo derate stenosis at the origin of the left vertebral artery secondary to calcified plaque. The basilar and imaged posterior cerebral arteries appear patent. Pulmonary emphysema. Linear opacities suggestive of scarring noted within the left upper lung. Unrema rkable soft tissues. Degenerative changes of the spine. No acute fracture identified. Chronic appeari ng complete opacification of the left maxillary sinus with hyperdense secretions. IMPRESSION:Atherosclerosis without aneurysm, dissection, high-grade stenosis or arterial occlusion id entified. ACT 112: Negative or not required by law. The above report was generated using voice recognition software. It may contain grammatical, syntax o r spelling errors. Electronically signed by: Otf Hunt M.D. 09/02/2024 10:03 AM
[2024-09-02 10:13] LABS: Partial Thromboplastin Ratio 1.1; Partial Thromboplastin Time 30 Seconds (21-31); Prothrombin Time 11.2 Seconds (9.0-12.0)
[2024-09-02 10:18] LABS: Albumin Globulin Ratio 1.3 (0.9-2); Albumin Level 3.5 gm/dl (3.4-5.0); BUN Creatinine Ratio 19.4 (10-20); Bilirubin,Total 0.8 mg/dl (0.2-1.0); Calcium 8.7 mg/dl (8.6-10.3); Creatinine Clr Calc Pharmacy 77.5 ml/min; Globulin 2.6 gm/dl (2.5-4.0); Potassium 4.7 mmol/L (3.5-5.1); Total Protein 6.1 gm/dl (6.0-8.3)
--- NOTE | 2024-09-02 10:34 | History & Physical Report ---
Date of Service September 02, 2024 Assessment & Plan (1) Stroke-like symptoms: (2) Lung cancer metastatic to brain: Plan Kasi Vaughn is a 63-year-old female with past medical history significant for COPD, tobacco use disorder, metastatic lung cancer to the brain [also prior documented metastases to the spleen, left neck, mediastinum, left hilum, left upper chest + omentum; first diagnosed in 03/2016] s/p chemotherapy + radiation, splenic rupture s/p splenectomy in 03/2016, hypothyroidism, avascular necrosis of the right hip, history of venous thromboses of the left subclavian/left brachiocephalic veins/SVC [currently anticoagulated on Eliquis], urinary incontinence, exfoliative dermatitis of bilateral feet and depression who presented to the ED via EMS [facility] after she developed sudden left-sided weakness and aphasia. Strokelike Symptoms: Patient was getting routine lab work done at the [facility] when she suddenly developed left-sided weakness and aphasia. LKW was around 9AM this morning. She made a stroke alert prior to arrival at the ED. Initial ED evaluation including head CT, head CTA and neck CTA were all grossly unremarkable. Neck CTA noted moderate stenosis at the origin of the left vertebral artery secondary to calcified plaque but otherwise did not reveal high-grade stenosis or arterial occlusion. Initial laboratory evaluation was also unremarkable. Patient was seen and evaluated by the [facility]Stroke neurologist, Dr. Drake Garcia, in the ED. Thrombolytics not recommended as the patient had taken Eliquis within the last 48 hours; recommended to hold patient's Eliquis until brain MRI is completed. Left-sided weakness improved and aphasia resolved at the time of our evaluation in the ED around 11AM this morni ng. -Full stroke w/u including brain MRI, resting echo, speech eval, PT/OT evals, lipid panel/Hgb A1c and neuro consult pending. Failed dysphagia screen in ED, NPO for now. Lung CA Metastatic to Brain: -Patient follows with [facility]. Also follows with neurosurgery - Dr. Georgi Mcgovern at [facility]. S/p chemotherapy + radiation. Not currently recei ving treatment. -CT chest & CTAP in 05/2023 revealed no evidence of disease progression. Most recent brain MRI obtained by at [facility] in 06/2023 also showed no evidence of disease progression. Other Chronic Medical Conditions: * Urinary Incontinence - Continue oxybutynin chloride. Hypothyroidism - Check TSH/T4 in AM. Continue levothyroxine. * COPD/Tobacco Use Disorder - Reports smoking ~1ppd; used to smoke ~3ppd. Encourage smoking cessation. Nicotine patch ordered. PRN Duonebs for SOB/wheezing, continue Trelegy. DVT Prophylaxis: On Eliquis NETWORK DIRECTOR - holding for now pending brain MRI results as per above. Code Status: DNR/DNI - As per direct conversation with the patient at bedside in the ED. PCP: ALYSSA Sevilla [Unassigned; ARSH Stein] Dispo: Admit to PCU/Telemetry for further inpatient evaluation and management; likely can be downgraded to Med/Telemetry tomorrow if NAEO. Patient seen in collaboration with Dr. Jack. Please see addendum. I spent a total of 55 minutes coordinating, documenting, and providing care for this patient excluding time spent in the performance of separately billed services. This included personally reviewing all current laboratories and imaging studies, medical reconciliation, outpatient chart review and discussion with specialists. This chart was completed in part utilizing Speech Voice Recognition Software. Grammatical errors, random word insertions, pronoun errors, and incomplete sentences are an occasional consequence of this system due to software limitations, ambient noise, and hardware issues. Any formal questions or concerns about the content, text, or information contained within the body of this dictation should be directly addressed to the provider for clarification. History of Present Illness Chief Complaint: Unassigned Patient: Stroke Alert Primary Care Provider: ALYSSA Sevilla Kasi Vaughn is a 63-year-old female with past medical history significant for COPD, tobacco use disorder, metastatic lung cancer to the brain [also prior documented metastases to the spleen, left neck, mediastinum, left hilum, left upper chest + omentum; first diagnosed in 03/2016] s/p chemotherapy + radiation, splenic rupture s/p splenectomy in 03/2016, hypothyroidism, avascular necrosis of the right hip, history of venous thromboses of the left subclavian/left brachiocephalic veins/SVC [currently anticoagulated on Eliquis], exfoliative dermatitis of bilateral feet and depression who presented to the ED via EMS on 09/02/2024 from the [facility] after she developed sudden left-sided weakness and aphasia. History obtained from the patient, discussion with ED provider and associated chart review. Patient seen at bedside with Dr. Jack in the ED - room C7. Patient was getting routine lab work done at the [facility] when she suddenly developed left-sided weakness and aphasia. LKW was around 9AM this morning. She made a stroke alert prior to arrival at the ED. Initial ED evaluation including head CT, head CTA and neck CTA were all grossly unremarkable. Neck CTA noted moderate stenosis at the origin of the left vertebral artery secondary to calcified plaque but otherwise did not reveal high-grade stenosis or arterial occlusion. Initial laboratory evaluation was also unremarkable. Patient was seen and evaluated by the [facility] TeleStroke neurologist, Dr. Drake Garcia, in the ED. Thrombolytics not recommended as the patient had taken Eliquis within the last 48 hours; recommended to hold patient's Eliquis until brain MRI is completed. Patient with improvement in her left-sided weakness at the time of our evaluation in the ED around 11AM. She reports that she was experiencing more weakness in the left arm vs left leg. She still feels some tingling in her left arm however this is improving from when it began; she does mention though that it still doesn't "feel right/normal" at the moment. She was also having some slurred speech when the weakness started, but thankfully this have resolved per the patient. She was not experiencing a headache or altered vision when this all started. She does endorse that both of her legs feel slightly more weak than usual. No recent falls or trauma noted. Patient denies any SOB or chest pain. She does have chronic left upper quadrant abdominal pain following her splenectomy in 2016 - this is unchanged from baseline. Patient reports that her last year due to cancer. She is NOT currently receiving any treatments for her metastatic lung cancer; she was supposed to have a routine visit with EDDIE Mcgowan at the [facility] to determine next steps in her cancer journey/prognosis however this visit was not completed secondary to the development of her strokelike symptoms prompting emergent ED evaluation. Per most recent [facility] note --> "Stage IV, splenic metastasis, EGFR negative, ALK negative, PD-L1 positive, s/p splenectomy, followed by 3 cycles of Taxol/Carbo, with the addition of Avastin with cycle #4. A total of 6 cycles given. Resulting in disease progression. Brain metastasis, given palliative brain XRT. She was also subsequently placed on Opdivo for 6 months completing her sixth and final cycle in early February 2017. Posttreatment CT scan confirmed a very good response and it was decided to go ahead and resume Opdivo, which started in March 2017. Opdivo discontinued because of immune related side effects." Allergies Allergy/AdvReac Type Severity Reaction Status Date / Time ibuprofen Allergy Severe Swelling;hi Verified 08/26/19 10:56 ves latex Allergy Blister Verified 06/16/19 13:44 Home Medications Medication Instructions Recorded Confirmed Type albuterol sulfate 0.63 mg/3 mL 0.63 mg continuous nebulization 09/02/24 09/02/24 History solution for nebulization Q4H PRN SOB/Wheezing albuterol sulfate 90 mcg/actuation 1 puff inhalation QID PRN 09/02/24 09/02/24 History aerosol inhaler (Ventolin HFA) SOB/Wheezing apixaban 5 mg tablet (Eliquis) 5 mg PO BID 09/02/24 09/02/24 History fluticasone fur. 100 mcg-umeclid 1 inh inhalation DAILY 09/02/24 09/02/24 History 62.5 mcg-vilant 25 mcg inhalat.powder (Trelegy Ellipta) levothyroxine 50 mcg tablet 50 mcg PO DAILY 09/02/24 09/02/24 History ondansetron HCl 8 mg tablet 8 mg PO Q8H PRN Nausea/Vomiting 09/02/24 09/02/24 History oxybutynin chloride 5 mg tablet 5 mg PO DAILY 09/02/24 09/02/24 History Past Med/Surg History Problem List Stroke-like symptoms Carcinoma, lung (Acute 03/26/16) "Admitted due to abdominal pain and finding of a ruptured spleen. 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 She received 3000 cGy in 5 fractions. Continuation of systemic treatment with Opdivo Lung cancer metastatic to brain (Chronic) Medical History COPD (chronic obstructive pulmonary disease) Lung cancer metastatic to brain Surgical History Status post splenectomy Status post cardiac catheterization Social History Smoking Status: Current every day smoker Second Hand Exposure: No; Do You Dip or Chew Tobacco: No; Hx Alcohol Use: No Hx Substance Use: No Preferred Language: Danish Communication Ability: Effective Tubular Riveter Required: No Beliefs That Will Affect Care: None Current Living Situation: Significant Other Feels Safe at Home: Yes Assistive Devices: Cane, Denture - Upper, Glasses and Walker Review of Systems Review of Systems: At least ten systems reviewed and negative, except as noted in the HPI. Physical Exam Physical Exam: Please refer to Dr. Jack's addendum for physical examination findings. Results & Data Results & Data Vital Signs (Past 12 Hours) Vital Signs Temp Pulse Pulse Resp BP BP Pulse Ox 09/02/24 10:26 80 16 176/91 H 96 09/02/24 10:14 74 09/02/24 09:51 73 18 179/97 H 100 09/02/24 09:41 36.9 C 76 18 180/129 H 98 O2 Del Method 09/02/24 10:26 Room Air 09/02/24 10:14 09/02/24 09:51 09/02/24 09:41 Room Air Laboratory Results Short CBC 09/02/24 Range/Units 09:43 WBC 8.39 (4.8-10.8) K/ul Hgb 13.7 (12.0-16.0) g/dl Hct 42.0 (37.0-47.0) % Plt Count 350 (130-400) K/uL BMP 09/02/24 09:43 Sodium 136 Potassium 4.7 Chloride 104 Carbon Dioxide 28 BUN 21 Creatinine 1.08 Glucose 96 Calcium 8.7 Liver Function 09/02/24 Range/Units 09:43 Total Bilirubin 0.8 (0.2-1.0) mg/dl AST 12 L (13-39) U/L ALT 8 (7-52) U/L Alkaline Phosphatase 84 (34-104) U/L Albumin 3.5 (3.4-5.0) gm/dl Diagnostic Findings Head CT 09/02/24 09:31 CT angio head w con, CT head/brain wo con CLINICAL HISTORY: neuro deficit, acute stroke suspected TECHNIQUE: Contiguous axial CT images of the head were acquired from the base of the skull to the vertex without intravenous contrast administration. CT angiography of the head was performed following intravenous administration of iodinated contrast. Coronal and sagittal MIPS were obtained from the axial data set and were submitted for review. Automated dose lowering techniques and/or adjustment according to patient size were utilized for this examination. All measurements were calculated based on NASCET criteria. Comparison: None available at the time of this dictation. FINDINGS: CT head: Areas of decreased attenuation are present in the periventricular and subcortical white matter bilaterally consistent with small vessel ischemic disease. Generalized cerebral atrophy with commensurate enlargement of the ventricles, sulci, and cisterns is also present. There is no acute intracranial hemorrhage or evidence of acute territorial infarction. No shift of the midline structures, mass effect, or extra-axial abnormalities are shown. Atherosclerotic calcifications are present in the intracranial segments of the internal carotid arteries. Focal encephalomalacia in the left parieto-occipital region is unchanged. Opacification of the left maxillary sinus and multiple ethmoid air cells noted. CTA Head: The anterior and posterior cerebral circulations are patent. No hemodynamically significant stenosis, aneurysm, dissection, or arteriovenous malformation is shown. IMPRESSION: 1. No acute intracranial hemorrhage, evidence of acute territorial infarction, or other acute intracranial disease process. 2. No occlusion, hemodynamically significant stenosis, aneurysm, dissection, or arteriovenous malformation in the major intracranial arteries. Assessment of stenosis of the internal carotid arteries is based on NASCET criteria. ACT 112: Negative or not required by law. Electronically signed by: Javy Vivas M.D. 09/02/2024 9:57 AM Head CTA 09/02/24 09:31 CT angio head w con, CT head/brain wo con CLINICAL HISTORY: neuro deficit, acute stroke suspected TECHNIQUE: Contiguous axial CT images of the head were acquired from the base of the skull to the vertex without intravenous contrast administration. CT angiography of the head was performed following intravenous administration of iodinated contrast. Coronal and sagittal MIPS were obtained from the axial data set and were submitted for review. Automated dose lowering techniques and/or adjustment according to patient size were utilized for this examination. All measurements were calculated based on NASCET criteria. Comparison: None available at the time of this dictation. FINDINGS: CT head: Areas of decreased attenuation are present in the periventricular and subcortical white matter bilaterally consistent with small vessel ischemic disease. Generalized cerebral atrophy with commensurate enlargement of the ventricles, sulci, and cisterns is also present. There is no acute intracranial hemorrhage or evidence of acute territorial infarction. No shift of the midline structures, mass effect, or extra-axial abnormalities are shown. Atherosclerotic calcifications are present in the intracranial segments of the internal carotid arteries. Focal encephalomalacia in the left parieto-occipital region is unchanged. Opacification of the left maxillary sinus and multiple ethmoid air cells noted. CTA Head: The anterior and posterior cerebral circulations are patent. No hemodynamically significant stenosis, aneurysm, dissection, or arteriovenous malformation is shown. IMPRESSION: 1. No acute intracranial hemorrhage, evidence of acute territorial infarction, or other acute intracranial disease process. 2. No occlusion, hemodynamically significant stenosis, aneurysm, dissection, or arteriovenous malformation in the major intracranial arteries. Assessment of stenosis of the internal carotid arteries is based on NASCET criteria. ACT 112: Negative or not required by law. Electronically signed by: Javy Vivas M.D. 09/02/2024 9:57 AM Neck CTA 09/02/24 09:31 CT angio neck with con CLINICAL HISTORY: 63 years-old Female with neuro deficit, acute stroke suspected. Acute stroke like symptoms with left-sided weakness COMPARISON STUDY: Head CT and CTA head studies of same day TECHNIQUE: Following the IV administration of 120 cc of Optiray, CT angiogram of the neck was performed from the aortic arch to the skull base. Images are reviewed in the axial, sagittal, and coronal planes. 3-D MIPS images are created and assessed. IV contrast was administered without complication. All measurements were calculated based on NASCET criteria. A dose lowering technique was utilized adhering to the principles of ALARA. CT DOSE: 968.44 mGy.cm FINDINGS: Atherosclerosis of the thoracic aortic arch. Opacified collateral vessels of the right chest wall and supraclavicular tissues with narrowing of the right subclavian vein. The innominate and subclavian arteries are patent. Patent common carotid arteries. Atherosclerosis of the carotid bulbs without significant stenosis. Internal carotid arteries are widely patent. The vertebral arteries are patent bilaterally. There is moderate stenosis at the origin of the left vertebral artery secondary to calcified plaque. The basilar and imaged posterior cerebral arteries appear patent. Pulmonary emphysema. Linear opacities suggestive of scarring noted within the left upper lung. Unremarkable soft tissues. Degenerative changes of the spine. No acute fracture identified. Chronic appearing complete opacification of the left maxillary sinus with hyperdense secretions. IMPRESSION:Atherosclerosis without aneurysm, dissection, high-grade stenosis or arterial occlusion identified. ACT 112: Negative or not required by law. The above report was generated using voice recognition software. It may contain grammatical, syntax or spelling errors. Electronically signed by: Otf Hunt M.D. 09/02/2024 10:03 AM Medications Administered Discontinued Medications Ioversol (Optiray 320 125ml) 120 ml IV ONCE ONE Stop: 09/02/24 09:34 Last Admin: 09/02/24 09:34 Dose: 120 ml Documented By: EDK Code Status & VTE Plan Code Status DNR/DNI - No Resuscitation Supervising Physician Co-Signing Physician Notes Pt seen and examined by me, care coordinated with EDDIE Chakraborty, pls refer to her note above for further detail. 63 yo F w/ hx of COPD, tobacco use disorder, metastatic lung cancer to the brain [also prior documented metastases to the spleen, left neck, mediastinum, left hilum, left upper chest + omentum; first diagnosed in 03/2016] s/p chemotherapy + radiation, splenic rupture s/p splenectomy in 03/2016, hypothyroidism, avascular necrosis of the right hip, history of venous thromboses of the left subclavian/left brachiocephalic veins/SVC [currently anticoagulated on Eliquis], who presented [facility] the ED from [facility] Center as "stroke alert" after she developed sudden left-sided weakness and aphasia. Initial ED evaluation including head CT, head CTA and neck CTA were all grossly unremarkable. Patient was seen and evaluated by the [facility] TeleStroke neurologist, Dr. Drake Garcia, in the ED. Thrombolytics not recommended as the patient had taken Eliquis within the last 48 hours; recommended to hold patient's Eliquis until brain MRI is completed. Pt is currently laying in bed in NAD, she is able to provide hx, speech is much improved. She is moving LEs, she is also moving RUE w/o any difficulty. LUE pt moves but there is weakness noted. No facial asymmetry. Lung sounds diminished. Heart sounds regular. Abdomen soft, nontender. Pt reports improvement. Will obtain brain MRI, and further stroke work up. Also contacted cancer center for last note from provider - reviewed and [facility]. MD Guero
--- NOTE | 2024-09-02 11:53 | Emergency Department Note ---
Impression & Plan Cerebrovascular accident, Carcinoma, lung, Lung cancer metastatic to brain ED Provider Note NAME: DILLON CELESTE AGE: 63 SEX: F : 1960 ARRIVES VIA: Ambulance INFORMANT: Patient, ED PROVIDER(S): Dann Giraldo MD CHIEF COMPLAINT: Stroke alert HPI: This is a 63-year-old female presenting as a stroke alert. Patient was at her outpatient cancer center getting routine blood work. Upon finishing up she noted left-sided weakness as well as aphasia. She was then brought to the emergency department. Symptom started 9 AM. She did take her Eliquis at around 6 AM. Takes Eliquis for blood clots. She notes that her symptoms were previously a little worse and are notes it is improving. This is around 35 minutes ago. She notes no headache, vision changes, nausea vomiting or diarrhea. Patient history of lung and brain cancer. ROS: See above HPI for pertinent positives & negatives. A total of 10 systems reviewed and were otherwise negative. PAST MEDICAL HISTORY: See Below PAST SURGICAL HISTORY: See Below FAMILY HISTORY: See Below SOCIAL HISTORY: See Below HOME MEDICATIONS: See Below ALLERGIES: See Below VITALS: See Below PHYSICAL EXAMINATION: General: resting comfortably in no acute distress Head: Normocephalic and atraumatic Eyes: Normal inspection, extraocular muscles intact Ear, nose, throat: Normal external exam Neck: Normal range of motion Respiratory: lungs clear to auscultation bilaterally Cardiovascular: Regular rate/rhythm, no murmur GI: soft, nontender, no guarding or rebound Extremities: nontender, moves all extremities Neuro: Awake, alert, no facial asymmetry, 1/5 strength in the left lower extremity, 2/5 strength in the left upper extremity, cranial 2 through 12 grossly intact Skin: Warm, dry, and intact MEDICAL DECISION MAKING: This is a a 63-year-old female presenting as a stroke alert. Patient does have left upper and lower extremity weakness concerning for acute CVA. She is on Eliquis making her not a TNKase candidate. Will assess for LVO and possible thrombectomy if indicated. -CT imaging is currently negative for any acute LVO or hemorrhage -CTA head and neck also revealed no acute abnormalities -Bloodwork is reviewed showing no significant leukocytosis, anemia, electrolyte or creatinine abnormality -Discussed care with Dr. Garcia, stroke neurologist for [facility], made aware of patient's clinical course and history. He has evaluated the patient through the telemetry stroke cart. His recommendations will be in the chart -Dr. Garcia's recommendations in chart, no acute invention at this time due to no LVO as well as being on Eliquis not TNKase candidate -Care discussed with [facility] service under Dr. Jack for admission -Patient updated on current plan of care Differential diagnosis: Stroke, TIA, hemorrhage, hemorrhagic conversion, intracranial Independent History obtained from: EMS Diagnostics interpreted by me: ECG: ECG independently interpreted by me with normal sinus rhythm, rate of 78, normal axis, normal WI, normal QRS, normal QTc, no ST segment elevations consistent with STEMI criteria Cardiac Monitoring: An order was placed for continuous cardiac monitoring. The monitor shows a rate of 58 with sinus] rhythm. Past Med/Surg History Problem List (Updated 09/02/24 @ 14:29 by Dann Giraldo MD) Cerebrovascular accident (Acute) Stroke-like symptoms Carcinoma, lung (Acute 03/26/16) "Admitted due to abdominal pain and finding of a ruptured spleen. 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 She received 3000 cGy in 5 fractions. Continuation of systemic treatment with Opdivo Lung cancer metastatic to brain (Chronic) Medical History COPD (chronic obstructive pulmonary disease) Lung cancer metastatic to brain Surgical History Status post splenectomy Status post cardiac catheterization Social History Smoking Status: Current every day smoker Second Hand Exposure: No; Do You Dip or Chew Tobacco: No; Hx Alcohol Use: No Hx Substance Use: No Preferred Language: Albanian Communication Ability: Effective Nurse Examiner Required: No Beliefs That Will Affect Care: None Current Living Situation: Significant Other Feels Safe at Home: Yes Assistive Devices: Cane, Denture - Upper, Glasses and Walker Allergies Allergies Allergy/AdvReac Type Severity Reaction Status Date / Time ibuprofen Allergy Severe Swelling;hi Verified 08/26/19 10:56 ves latex Allergy Blister Verified 06/16/19 13:44 Home Meds Home Medications Medication Instructions Recorded Confirmed albuterol sulfate 0.63 mg/3 mL 0.63 mg continuous nebulization 09/02/24 09/02/24 solution for nebulization Q4H PRN SOB/Wheezing albuterol sulfate 90 mcg/actuation 1 puff inhalation QID PRN 09/02/24 09/02/24 aerosol inhaler (Ventolin HFA) SOB/Wheezing apixaban 5 mg tablet (Eliquis) 5 mg PO BID 09/02/24 09/02/24 fluticasone fur. 100 mcg-umeclid 1 inh inhalation DAILY 09/02/24 09/02/24 62.5 mcg-vilant 25 mcg inhalat.powder (Trelegy Ellipta) levothyroxine 50 mcg tablet 50 mcg PO DAILY 09/02/24 09/02/24 ondansetron HCl 8 mg tablet 8 mg PO Q8H PRN Nausea/Vomiting 09/02/24 09/02/24 oxybutynin chloride 5 mg tablet 5 mg PO DAILY 09/02/24 09/02/24 Results & Data (ED) Vital Signs Vital Signs - 24 hr 09/02/24 09:41 09/02/24 09:51 09/02/24 09:51 Temperature 36.9 C Temperature Source Oral Pulse Rate 76 72 Pulse Rate [Left Finger] 73 Pulse Rate from SpO2 Sensor 74 Pulse Rhythm [Left Finger] Pulse Strength [Left Finger] Respiratory Rate 18 18 14 Respiratory Effort / Characteristics Respiratory Depth Respiratory Pattern Blood Pressure 180/129 H 179/97 H Blood Pressure [Right Arm] 179/97 H Blood Pressure Mean 146 124 Blood Pressure Mean [Right Arm] 124 Blood Pressure Position Lying Blood Pressure Position [Right Arm] Pulse Oximetry 98 100 98 Oxygen Delivery Method Room Air Room Air Sepsis Recent Fever Within 48 Hours No Sepsis New/Unexplained Change in Mental Status No Sepsis Action Taken by Nursing No Action Required 09/02/24 10:14 09/02/24 10:26 09/02/24 10:33 Temperature Temperature Source Pulse Rate 74 68 Pulse Rate [Left Finger] 80 Pulse Rate from SpO2 Sensor 69 Pulse Rhythm [Left Finger] Regular Pulse Strength [Left Finger] Normal Respiratory Rate 16 16 Respiratory Effort / Characteristics Non-Labored Spontaneous Respiratory Depth Normal Respiratory Pattern Regular Blood Pressure 178/96 H Blood Pressure [Right Arm] 176/91 H Blood Pressure Mean 123 Blood Pressure Mean [Right Arm] 119 Blood Pressure Position Blood Pressure Position [Right Arm] Sitting Pulse Oximetry 96 95 Oxygen Delivery Method Room Air Room Air Sepsis Recent Fever Within 48 Hours Sepsis New/Unexplained Change in Mental Status Sepsis Action Taken by Nursing Laboratory Data 09/02/24 09:43 09/02/24 09:43 Lab Results 09/02/24 Range/Units 09:43 WBC 8.39 (4.8-10.8) K/ul RBC 4.68 (4.20-5.40) M/uL Hgb 13.7 (12.0-16.0) g/dl Hct 42.0 (37.0-47.0) % MCV 89.7 (80.0-100.0) fL MCH 29.3 (25.0-34.0) pg MCHC 32.6 (32.0-36.0) g/dL RDW Std Deviation 49.8 H (36.4-46.3) fL RDW Coeff of Dipika 15.2 H (11.5-14.5) % Plt Count 350 (130-400) K/uL MPV 9.2 L (9.4-12.4) fL Immature Gran % (Auto) 0.2 % Neut % (Auto) 47.3 % Lymph % (Auto) 37.1 % Dickens % (Auto) 9.1 % Eos % (Auto) 5.2 % Baso % (Auto) 1.1 % Neut # (Auto) 3.97 (1.40-6.50) K/uL Lymph # (Auto) 3.11 (1.20-3.40) K/uL Dickens # (Auto) 0.76 H (0.11-0.59) K/uL Eos # (Auto) 0.44 (0.00-0.50) K/uL Baso # (Auto) 0.09 (0.00-0.20) K/uL Immature Gran # (Auto) 0.02 (0.01-0.20) K/uL PT 11.2 (9.0-12.0) Seconds INR 1.0 (0.9-1.1) APTT 30 (21-31) Seconds PTT Ratio 1.1 Sodium 136 (136-145) mmol/L Potassium 4.7 (3.5-5.1) mmol/L Chloride 104 (98-107) mmol/L Carbon Dioxide 28 (21-32) mmol/L Anion Gap 4 (3-11) BUN 21 (6-23) mg/dl Creatinine 1.08 (0.6-1.2) mg/dl Est Cr Clr Drug Dosing 77.5 ml/min eGFR 57.36 BUN/Creatinine Ratio 19.4 (10-20) Glucose 96 (70-99(Fasting)) mg/dl Calcium 8.7 (8.6-10.3) mg/dl Magnesium 2.0 (1.7-2.4) mg/dl Total Bilirubin 0.8 (0.2-1.0) mg/dl AST 12 L (13-39) U/L ALT 8 (7-52) U/L Alkaline Phosphatase 84 (34-104) U/L Troponin I High Sens 3.0 (0-14) pg/ml Total Protein 6.1 (6.0-8.3) gm/dl Albumin 3.5 (3.4-5.0) gm/dl Globulin 2.6 (2.5-4.0) gm/dl Albumin/Globulin Ratio 1.3 (0.9-2) Blood Type O Positive Antibody Screen NEGATIVE Administered Medications Discontinued Medications Gadobutrol (Gadobutrol 65ml Vial) 7.5 ml IV ONCE ONE Stop: 09/02/24 13:24 Last Admin: 09/02/24 13:25 Dose: 7.5 ml Documented By: SEDiego Ioversol (Optiray 320 125ml) 120 ml IV ONCE ONE Stop: 09/02/24 09:34 Last Admin: 09/02/24 09:34 Dose: 120 ml Documented By: EDK Imaging Data Radiologist's Impression: Head CT 09/02/24 09:31 CT angio head w con, CT head/brain wo con CLINICAL HISTORY: neuro deficit, acute stroke suspected TECHNIQUE: Contiguous axial CT images of the head were acquired from the base of the skull to the vertex without intravenous contrast administration. CT angiography of the head was performed following intravenous administration of iodinated contrast. Coronal and sagittal MIPS were obtained from the axial data set and were submitted for review. Automated dose lowering techniques and/or adjustment according to patient size were utilized for this examination. All measurements were calculated based on NASCET criteria. Comparison: None available at the time of this dictation. FINDINGS: CT head: Areas of decreased attenuation are present in the periventricular and subcortical white matter bilaterally consistent with small vessel ischemic disease. Generalized cerebral atrophy with commensurate enlargement of the ventricles, sulci, and cisterns is also present. There is no acute intracranial hemorrhage or evidence of acute territorial infarction. No shift of the midline structures, mass effect, or extra-axial abnormalities are shown. Atherosclerotic calcifications are present in the intracranial segments of the internal carotid arteries. Focal encephalomalacia in the left parieto-occipital region is unchanged. Opacification of the left maxillary sinus and multiple ethmoid air cells noted. CTA Head: The anterior and posterior cerebral circulations are patent. No hemodynamically significant stenosis, aneurysm, dissection, or arteriovenous malformation is shown. IMPRESSION: 1. No acute intracranial hemorrhage, evidence of acute territorial infarction, or other acute intracranial disease process. 2. No occlusion, hemodynamically significant stenosis, aneurysm, dissection, or arteriovenous malformation in the major intracranial arteries. Assessment of stenosis of the internal carotid arteries is based on NASCET criteria. ACT 112: Negative or not required by law. Electronically signed by: Javy Vivas M.D. 09/02/2024 9:57 AM Head CTA 09/02/24 09:31 CT angio head w con, CT head/brain wo con CLINICAL HISTORY: neuro deficit, acute stroke suspected TECHNIQUE: Contiguous axial CT images of the head were acquired from the base of the skull to the vertex without intravenous contrast administration. CT angiography of the head was performed following intravenous administration of iodinated contrast. Coronal and sagittal MIPS were obtained from the axial data set and were submitted for review. Automated dose lowering techniques and/or adjustment according to patient size were utilized for this examination. All measurements were calculated based on NASCET criteria. Comparison: None available at the time of this dictation. FINDINGS: CT head: Areas of decreased attenuation are present in the periventricular and subcortical white matter bilaterally consistent with small vessel ischemic disease. Generalized cerebral atrophy with commensurate enlargement of the ventricles, sulci, and cisterns is also present. There is no acute intracranial hemorrhage or evidence of acute territorial infarction. No shift of the midline structures, mass effect, or extra-axial abnormalities are shown. Atherosclerotic calcifications are present in the intracranial segments of the internal carotid arteries. Focal encephalomalacia in the left parieto-occipital region is unchanged. Opacification of the left maxillary sinus and multiple ethmoid air cells noted. CTA Head: The anterior and posterior cerebral circulations are patent. No hemodynamically significant stenosis, aneurysm, dissection, or arteriovenous malformation is shown. IMPRESSION: 1. No acute intracranial hemorrhage, evidence of acute territorial infarction, or other acute intracranial disease process. 2. No occlusion, hemodynamically significant stenosis, aneurysm, dissection, or arteriovenous malformation in the major intracranial arteries. Assessment of stenosis of the internal carotid arteries is based on NASCET criteria. ACT 112: Negative or not required by law. Electronically signed by: Javy Vivas M.D. 09/02/2024 9:57 AM Neck CTA 09/02/24 09:31 CT angio neck with con CLINICAL HISTORY: 63 years-old Female with neuro deficit, acute stroke suspected. Acute stroke like symptoms with left-sided weakness COMPARISON STUDY: Head CT and CTA head studies of same day TECHNIQUE: Following the IV administration of 120 cc of Optiray, CT angiogram of the neck was performed from the aortic arch to the skull base. Images are reviewed in the axial, sagittal, and coronal planes. 3-D MIPS images are created and assessed. IV contrast was administered without complication. All measurements were calculated based on NASCET criteria. A dose lowering technique was utilized adhering to the principles of ALARA. CT DOSE: 968.44 mGy.cm FINDINGS: Atherosclerosis of the thoracic aortic arch. Opacified collateral vessels of the right chest wall and supraclavicular tissues with narrowing of the right subclavian vein. The innominate and subclavian arteries are patent. Patent common carotid arteries. Atherosclerosis of the carotid bulbs without significant stenosis. Internal carotid arteries are widely patent. The vertebral arteries are patent bilaterally. There is moderate stenosis at the origin of the left vertebral artery secondary to calcified plaque. The basilar and imaged posterior cerebral arteries appear patent. Pulmonary emphysema. Linear opacities suggestive of scarring noted within the left upper lung. Unremarkable soft tissues. Degenerative changes of the spine. No acute fracture identified. Chronic appearing complete opacification of the left maxillary sinus with hyperdense secretions. IMPRESSION:Atherosclerosis without aneurysm, dissection, high-grade stenosis or arterial occlusion identified. ACT 112: Negative or not required by law. The above report was generated using voice recognition software. It may contain grammatical, syntax or spelling errors. Electronically signed by: Otf Hunt M.D. 09/02/2024 10:03 AM Discharge Plan Visit Data Chief Complaint: Stroke Alert Stated Complaint: STROKE ALERT ED Provider: Dann Giraldo Discharge Problem: Cerebrovascular accident, Carcinoma, lung, Lung cancer metastatic to brain Patient Disposition: Admitted As Inpatient Discharge Instructions Interventions: ED Discharge Assessment Last Done: 09/02/24 14:06
[2024-09-02] MEDS: GADOBUTROL 65ML VIAL IV ONE (13:25)
[2024-09-02] MEDS ORDERED: ALBUT/IPRATROP 3MG/0.5MG NEB 3 ML VIAL NEB PRN (14:34)
[2024-09-02] MEDS ORDERED: PHARMACIST DISCHARGE MED REC CONSULT PRN (14:34)
[2024-09-02] MEDS ORDERED: POLYETHYLENE (MIRALAX) 17 GM PACK PO PRN (14:34)
[2024-09-02] MEDS ORDERED: MAGNESIUM HYDROXIDE SUSP 30 ML UDC PO PRN (14:34)
[2024-09-02] MEDS ORDERED: ACETAMINOPHEN 325 MG TAB PO PRN (14:34)
[2024-09-02] MEDS ORDERED: ONDANSETRON INJ 2 MG/ML 2 ML VIAL IV PRN (14:34)
--- NOTE | 2024-09-02 14:45 | Magnetic Resonance Report ---
MR brain wo/w con CLINICAL HISTORY: Stroke r/o TECHNIQUE: Multiplanar and multisequence MR images of the brain were obtained prior to and following administration of gadolinium contrast. Comparison: Comparison is made to MRI brain 06/11/2020 and CTA head and neck 09/02/2024 FINDINGS: No abnormal restricted diffusion is identified. Foci of T2 and FLAIR hyperintensity are noted in the paraventricular areas consistent with chronic small vessel ischemic disease. Ex vacuo ventriculomegal y and sulcal enlargement is noted compatible with diffuse volume loss. A focus of irregular enhanceme nt enhancement is seen in the left occipital lobe measuring approximately 17 mm. This was previously the site of a ring-enhancing lesion measuring 24 x 13 mm. There is no mass effect or midline shift. T here is no evidence of acute intraparenchymal hemorrhage. No extra axial fluid collections are seen. The corpus callosum, pituitary gland, and cerebellar tonsils appear grossly unremarkable. Flow voids of the major intracranial arterial vessels are identified. The imaged portions of the para nasal sinuses, mastoid air cells, and orbits are unremarkable. IMPRESSION: 1. No acute abnormalities. 2. Previously noted ring-enhancing lesion has decreased in size and become discontinuous measuring a pproximately 17 mm in diameter. This likely represents improvement in previously noted metastasis, ho wever residual disease cannot be excluded. ACT 112: Negative or not required by law. Electronically signed by: Javy Vivas M.D. 09/02/2024 2:05 PM
--- NOTE | 2024-09-02 15:04 | Communication Note ---
Date of Service: September 02, 2024 Brain MRI reviewed. No acute abnormalities; noted findings consistent with chronic small vessel ischemic disease. Previously noted ring-enhancing lesion (measuring 24 x 13mm) has decreased in size and became discontinuous now measuring approximately 17mm in diameter --> likely represents improvement in previously noted metastases. Notified later this afternoon by patient's RN, Oumou Navarro, that the patient had a rash on her LUE that was concerning for possible shingles. Upon talking with the patient again, she endorses that she first noticed this rash about 3 days ago and that it was quite painful when it first appeared. Does not appear to be very pruritic. On examination, there is a cluster of scabbed-over blisters on the LUE. Could be shingles vs pustular psoriasis, which the patient has seen by [facility] dermatology for in the past. Will continue to monitor, appears rash is healing; PRN cold compresses, capsaicin cream and calamine lotion ordered.
[2024-09-02] MEDS ORDERED: CAPSAICIN CR 0.075% 60 GM TUBE EXT PRN (15:15)
[2024-09-02] MEDS ORDERED: CALAMINE/PRAMOXINE LOTION 180 APPLN/180 ML BTL EXT PRN (15:15)
[2024-09-02] MEDS: NICOTINE 14 MG/24 HR PATCH TD SCH (15:37)
--- NOTE | 2024-09-02 16:54 | Neurology Consultation ---
Date of Consultation September 02, 2024 Assessment & Plan (1) Episode of change in speech: 63 yo woman w/ h/o lung carcinoma stage IV with known brain metastases who presented for speech changes, lightheadedness and left arm weakness lasting several hours before resolving completely. MRI is negative for stroke and shows decreasing in size of known brain lesion in left parietal region. The lesion could explain speech changes but does not correlate with left arm weakness patient endorses. Given constellation of symptoms and underlying risk factor of hypercoagulability of malignancy these symptoms could have related to TIA. She is well managed on eliquis 5 mg BID. She has never had neurologic symptoms befo re so seems less likely to relate to seizure as the brain lesion seems to be shrinking. Alternatively could have related to blood draw but would not expect that to cause left arm weakness. Plan -- Ok to resume eliquis -- Pt counseled regarding bp control. SBP goal < 130 ultimately. -- No further Neurologic work-up at this time, can consider EEG in future if symptoms were to recur. Telehealth Consultation Telehealth Information Telehealth Information: I performed this visit using a real-time telehealth connection between my location and the patients location ([facility]). After connecting through interactive tele-video, patient was identified by name and date of and/or wristband check.Patient (or authorized healthcare medical sales representative) was informed that this was a telemedicine visit and it was being conducted confidentially over secure lines. My office door was closed and no one else was present in the room with me.Patient (or authorized healthcare medical sales representative) provided consent to proceed with the visit, expressed an understanding of privacy and security of the telemedicine visit, and gave permission to have a hospital medical sales representative in the room in order to assist with the visit and to conduct portions of the visit, as needed. I informed the patient (or authorized healthcare medical sales representative) that I reviewed their record and presented the opportunity for them to ask any questions regarding the visit today. The patient agreed to participate. History of Present Illness Reason for Consultation: Speech changes Attending Physician: Joselo Jack MD History of Present Illness Per Chart. Patient was at cancer center when she was noted to have word finding difficulty. Presented as a stroke alert and given history of eliquis use and intracranial metastases no TNK was given. Symptoms apparently resolved. MRI is now completed and does not show stroke, does show known l parietal lesion that seems to be shrinking in size. Speaking to patient she states that she felt fine on the way to her appointment this morning. She states she had her blood drawn and then felt somewhat funny after. Eventually her speech became slurred, she felt dizzy and lightheaded. She has her blood drawn frequently and has never had a reaction like this. BP was elevated on arrival, pt denies history of high blood pressure. Her symptoms lasted a few hours before resolving completely. She denies ever having suffered neurologic symptoms due to her known brain metastases, never had a seizure. She is not currently undergoing chemotherapy or radiation. Allergies Allergy/AdvReac Type Severity Reaction Status Date / Time ibuprofen Allergy Severe Swelling;hi Verified 08/26/19 10:56 ves latex Allergy Blister Verified 06/16/19 13:44 Home Medications Medication Instructions Recorded Confirmed Type albuterol sulfate 0.63 mg/3 mL 0.63 mg continuous nebulization 09/02/24 09/02/24 History solution for nebulization Q4H PRN SOB/Wheezing albuterol sulfate 90 mcg/actuation 1 puff inhalation QID PRN 09/02/24 09/02/24 History aerosol inhaler (Ventolin HFA) SOB/Wheezing apixaban 5 mg tablet (Eliquis) 5 mg PO BID 09/02/24 09/02/24 History fluticasone fur. 100 mcg-umeclid 1 inh inhalation DAILY 09/02/24 09/02/24 History 62.5 mcg-vilant 25 mcg inhalat.powder (Trelegy Ellipta) levothyroxine 50 mcg tablet 50 mcg PO DAILY 09/02/24 09/02/24 History ondansetron HCl 8 mg tablet 8 mg PO Q8H PRN Nausea/Vomiting 09/02/24 09/02/24 History oxybutynin chloride 5 mg tablet 5 mg PO DAILY 09/02/24 09/02/24 History Patient History Medical History COPD (chronic obstructive pulmonary disease) Lung cancer metastatic to brain Surgical History Status post splenectomy Status post cardiac catheterization Social History Smoking Status: Current every day smoker Tobacco Type: Cigarettes Second Hand Exposure: Yes; Do You Dip or Chew Tobacco: No; Tobacco Cessation Education Requested by Patient: No Hx Alcohol Use: No Hx Substance Use: No Preferred Language: Italian Communication Ability: Effective School Traffic Guard Required: No Beliefs That Will Affect Care: None Current Living Situation: Family Other Information That Helps Us Care for You: No Feels Safe at Home: Yes Safety Concerns: Feels Safe At This Time Assistive Devices: Denture - Upper, Glasses and Walker Review of Systems negative aside from HPI Physical Exam Patient seen resting comfortably in bed, fully conversant. Able to repeat, name objects and follow simple and complex commands. No drift in any extremity, no ataxia on ftn. no facial assymetry or gaze deviation. gait and reflexes deferred. Results & Data Vital Signs (Past 12 Hours) Vital Signs Temp Pulse Pulse Resp BP BP Pulse Ox 09/02/24 14:40 09/02/24 14:40 36.7 C 81 20 169/94 H 98 09/02/24 14:06 58 L 18 142/71 H 92 09/02/24 13:42 71 15 97 09/02/24 13:41 135/70 09/02/24 13:39 88 21 09/02/24 12:42 73 20 95 09/02/24 12:30 133/73 09/02/24 12:03 69 22 183/99 H 97 09/02/24 11:57 73 25 H 95 09/02/24 11:42 74 14 96 09/02/24 11:30 67 18 168/78 H 94 09/02/24 10:33 68 16 178/96 H 95 09/02/24 10:26 80 16 176/91 H 96 09/02/24 10:14 74 09/02/24 09:51 72 14 179/97 H 98 09/02/24 09:51 73 18 179/97 H 100 09/02/24 09:41 36.9 C 76 18 180/129 H 98 O2 Del Method 09/02/24 14:40 Room Air 09/02/24 14:40 Room Air 09/02/24 14:06 Room Air 09/02/24 13:42 09/02/24 13:41 09/02/24 13:39 09/02/24 12:42 Room Air 09/02/24 12:30 09/02/24 12:03 Room Air 09/02/24 11:57 09/02/24 11:42 09/02/24 11:30 Room Air 09/02/24 10:33 Room Air 09/02/24 10:26 Room Air 09/02/24 10:14 09/02/24 09:51 Room Air 09/02/24 09:51 09/02/24 09:41 Room Air Laboratory Results per chart Diagnostic Findings MRI Brain 09/02/24: IMPRESSION: 1. No acute abnormalities. 2. Previously noted ring-enhancing lesion has decreased in size and become discontinuous measuring approximately 17 mm in diameter. This likely represents improvement in previously noted metastasis, however residual disease cannot be excluded. CTA H/N 09/02/24: No flow limiting stenosis
[2024-09-02] MEDS: APIXABAN 5 MG TABLET PO SCH (20:48)
--- NOTE | 2024-09-02 22:02 | Electrocardiogram Report ---
Test Reason : Blood Pressure : */* mmHG Vent. Rate : 78 BPM Atrial Rate : 78 BPM P-R Int : 146 ms QRS Dur : 82 ms QT Int : 406 ms P-R-T Axes : 74 39 59 degrees QTcB Int : 462 ms Normal sinus rhythm Normal ECG When compared with ECG of 02-Jun-2009 07:27, No significant change Reconfirmed by Dio Paz ([id number]) on 09/02/2024 10:02:39 PM Referred By: REFERRED SELF Confirmed By: Dio Paz
[2024-09-02] MEDS: oxyBUTYnin chloride 5 MG TAB PO SCH (22:23)
[2024-09-03] MEDS: LEVOTHYROXINE SODIUM 50 MCG TABLET PO SCH (05:19)
[2024-09-03 08:00] LABS: Basophils # (auto) 0.11 K/uL (0.00-0.20); Basophils % (auto) 1.4 %; Eosinophils # (auto) 0.42 K/uL (0.00-0.50); Eosinophils % (auto) 5.3 %; Hematocrit (blood only) 43.8 % (37.0-47.0); Hemoglobin 14.7 g/dl (12.0-16.0); Immature Granulocytes # (auto) 0.03 K/uL (0.01-0.20); Immature Granulocytes % (auto) 0.4 %; Lymphocytes % (auto) 35.3 %; Mean Corpuscular Hemoglobin 30.1 pg (25.0-34.0); Mean Corpuscular Hgb Conc 33.6 g/dL (32.0-36.0); Mean Corpuscular Volume 89.6 fL (80.0-100.0); Mean Platelet Volume 9.3 fL (9.4-12.4); Monocytes # (auto) 0.62 K/uL (0.11-0.59); Monocytes % (auto) 7.8 %; Neutrophils # (auto) 3.96 K/uL (1.40-6.50); Neutrophils % (auto) 49.8 %; Platelet Count 390 K/uL (130-400); RDW Standard Deviation 49.2 fL (36.4-46.3); Red Blood Count 4.89 M/uL (4.20-5.40); White Blood Count 7.94 K/ul (4.8-10.8)
[2024-09-03 08:27] LABS: Albumin Globulin Ratio 1.5 (0.9-2); BUN Creatinine Ratio 20.7 (10-20); Bilirubin,Total 0.9 mg/dl (0.2-1.0); Calcium 9.2 mg/dl (8.6-10.3); Creatinine Clr Calc Pharmacy 47.6 ml/min; Globulin 2.7 gm/dl (2.5-4.0); Magnesium 2.2 mg/dl (1.7-2.4); Potassium 4.4 mmol/L (3.5-5.1); Total Protein 6.7 gm/dl (6.0-8.3)
[2024-09-03 08:41] LABS: Thyroid Stimulating Hormone 2.547 uIu/ml (0.300-4.500)
[2024-09-03] MEDS: FLUTICASONE FUROATE 100MCG 14 PUFFS/INHALER INH SCH (08:50)
[2024-09-03] MEDS: UMECLIDINIUM/VILANTEROL 62.5/25MCG 7 PUFFS/INHALER INH SCH (08:50)
[2024-09-03] MEDS ORDERED: NON-FORMULARY MEDICATION (Fluticasone-Umeclidin-Vilanter [Trelegy Ellipta] 100-62.5-25 mcg INH SCH (09:00)
[2024-09-03] MEDS ORDERED: oxyBUTYnin chloride 5 MG TAB PO SCH (09:00)
[2024-09-03 09:24] LABS: Estimated Average Glucose 123 mg/dl; Hemoglobin A1C 5.9 % (4.5-5.6)
[2024-09-03] MEDS ORDERED: STROKE PATIENT DISCHARGE STA (09:29)
--- NOTE | 2024-09-03 10:03 | Discharge Summary ---
Discharge Summary Date of Service September 03, 2024 Principal Dx & Hospital Course #1 = Principal Diagnosis (1) Stroke-like symptoms: (2) Lung cancer metastatic to brain: Tj Vaughn is a 63-year-old female with past medical history significant for COPD, tobacco use disorder, metastatic lung cancer to the brain [also prior documented metastases to the spleen, left neck, mediastinum, left hilum, left upper chest + omentum; first diagnosed in 03/2016] s/p chemotherapy + radiation, splenic rupture s/p splenectomy in 03/2016, hypothyroidism, avascular necrosis of the right hip, history of venous thromboses of the left subclavian/left brachiocephalic veins/SVC [currently anticoagulated on Eliquis], urinary incontinence, exfoliative dermatitis of bilateral feet and depression who presented to the ED via EMS on 09/02/2024 from the [facility] after she developed sudden left-sided weakness and aphasia. Strokelike Symptoms: Patient was getting routine lab work done at the [facility] when she suddenly developed left-sided weakness and aphasia. LKW was around 9AM this morning. She made a stroke alert prior to arrival at the ED. Initial ED evaluation including head CT, head CTA and neck CTA were all grossly unremarkable. Neck CTA noted moderate stenosis at the origin of the left vertebral artery secondary to calcified plaque but otherwise did not reveal high -grade stenosis or arterial occlusion. Initial laboratory evaluation was also unremarkable. Patient was seen and evaluated by the [facility] neurologist, Dr. Drake Garcia, Left-sided weakness improved and aphasia resolved at the time of our evaluation in the ED around 11AM this morning. -neurology and MRI unrevealing for stroke -consideration for subclavian steal syndrome vs. vasovagal syncope as cause of left arm weakness/tingeling -stable for discharge home Lung CA Metastatic to Brain: -Patient follows with [facility]. Also follows with neurosurgery - Dr. Georgi Mcgovern at [facility]. S/p chemotherapy + radiation. Not currently receiving treatment. -CT chest & CTAP in 05/2023 revealed no evidence of disease progression. Most recent brain MRI obtained by at [facility] in 06/2023 also showed no evidence of disease progression. Other Chronic Medical Conditions: * Urinary Incontinence - Continue oxybutynin chloride. Hypothyroidism - Continue levothyroxine. * COPD/Tobacco Use Disorder - Reports smoking ~1ppd; used to smoke ~3ppd. Notes For Next Care Provider 63-year-old female with past medical history of stage IV lung cancer with brain mets who presents for lower left arm weakness and tingling after port acc ess. Neurology was consulted, and MRI was performed MRI was unrevealing. Patient's symptoms improved. Neurology signed off. Patient is medically stable for discharge home. Patient will need follow-up with oncology and PCP. 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 History obtained from the patient, discussion with ED pro vider and associated chart review. Patient seen at bedside with Dr. Jack in the ED - room C7. Patient was getting routine lab work done at the [facility] when she suddenly developed left-sided weakness and aphasia. LKW was around 9AM this morning. She made a stroke alert prior to arrival at the ED. Initial ED evaluation including head CT, head CTA and neck CTA were all grossly unremarkable. Neck CTA noted moderate stenosis at the origin of the left vertebral artery secondary to calcified plaque but otherwise did not reveal high-grade stenosis or arterial occlusion. Initial laboratory evaluation was also unremarkable. Patient was seen and evaluated by the [facility] neurologist, Dr. Drake Garcia, in the ED. Thrombolytics not recommended as the patient had taken Eliquis within the last 48 hours; recommended to hold patient's Eliquis until brain MRI is completed. Patient with improvement in her left-sided weakness at the time of our evaluation in the ED around 11AM. She reports that she was experiencing more weakness in the left arm vs left leg. She still feels some tingling in her left arm however this is improving from when it began; she does mention though that it still doesn't "feel right/normal" at the moment. She was also having some slurred speech when the weakness started, but thankfully this have resolved per the patient. She was not experiencing a headache or altered vision when this all started. She does endorse that both of her legs feel slightly more weak than usual. No recent falls or trauma noted. Patient denies any SOB or chest pain. She does have chronic left upper quadrant abdominal pain following her splenectomy in 2016 - this is unchanged from baseline. Patient reports that her last year due to cancer. She is NOT currently receiving any treatments for her metastatic lung cancer; she was supposed to have a routine visit with EDDIE Mcgowan at the [facility] to determine next steps in her cancer journey/prognosis however this visit was not completed secondary to the development of her strokelike symptoms prompting emergent ED evaluation. Per most recent [facility] note --> "Stage IV, splenic metastasis, EGFR negative, ALK negative, PD-L1 positive, s/p splenectomy, followed by 3 cycles of Taxol/Carbo, with the addition of Avastin with cycle #4. A total of 6 cycles given. Resulting in disease progression. Brain metastasis, given palliative brain XRT. She was also subsequently placed on Opdivo for 6 months completing her sixth and final cycle in early February 2017. Posttreatment CT scan confirmed a very good response and it was decided to go ahead and resume Opdivo, which started in March 2017. Opdivo discontinued because of immune related side effects." Discharge Exam Gen: A&O 3 NAD HEENT: NCAT, EOMI, not icteric. External ears normal. No rhinorrhea. Moist mucous membranes. Neck: Supple, full range of motion, no observable masses, No meningeal sign. Lungs: No Respiratory distress. CV: RRR, no edema. Abdomen: Soft, nondistended, No rebound tenderness. MSK: No joint swelling, no redness. Skin: No rashes, petechiae, lesions. Normal color per patient. Neuro: Normal Gait, Grossly intact. Neuro exam much improved from prior Psych: Appropriate for situation. Updated Medication List Medication Instructions Recorded Confirmed Type albuterol sulfate 0.63 mg/3 mL 0.63 mg continuous nebulization 09/02/24 09/02/24 History solution for nebulization Q4H PRN SOB/Wheezing albuterol sulfate 90 mcg/actuation 1 puff inhalation QID PRN 09/02/24 09/02/24 History aerosol inhaler (Ventolin HFA) SOB/Wheezing apixaban 5 mg tablet (Eliquis) 5 mg PO BID 09/02/24 09/02/24 History fluticasone fur. 100 mcg-umeclid 1 inh inhalation DAILY 09/02/24 09/02/24 History 62.5 mcg-vilant 25 mcg inhalat.powder (Trelegy Ellipta) levothyroxine 50 mcg tablet 50 mcg PO DAILY 09/02/24 09/02/24 History ondansetron HCl 8 mg tablet 8 mg PO Q8H PRN Nausea/Vomiting 09/02/24 09/02/24 History oxybutynin chloride 5 mg tablet 5 mg PO DAILY 09/02/24 09/02/24 History Hospital Stay Data Consultations 09/02/24 10:56 ED Decision to Admit Stat 09/02/24 11:16 Consult Neurology Routine 09/02/24 11:28 HIM [Consult Health Information Management] Stat Diagnostic Imagining Performed 09/02/24 09:31 CT angio head w con Stat CT angio neck with con Stat CT head/brain wo con Stat 09/02/24 11:16 MR brain wo/w con Routine Pending Results Patient Have Any Pending Studies at Discharge: No Discharge Instructions Given to Patient (Per Discharging Provider) 1. Please follow up with oncology and your PCP. 2. Stay hydrated. Total Time Total Time Spent Total Time Spent (In Minutes): I spent a total of 35 minutes coordinating, documenting, and providing care for this patient excluding time spent in the performance of separately billed services.
[2024-09-03] MEDS ORDERED: HEPARIN 100 UNIT/ML 5ML FLUSH FLUSH PRN (10:04)
[2024-09-03 10:42] VITALS: BP 109/75; PULSE 84; RESP 14; TEMP 97.7; O2SAT 93
== END 2024-09-03 14:20 | disposition home or self-care (01) | DRG 57 ==
LOC: ED 09:29 → 2S 11:16 → SUATTDRO 11:16 → 2S 14:06